=== PATIENT | female | born 1945 | race Caucasian/White ===

== ENCOUNTER 2022-10-15 12:21 | Inpatient (IN) | payer MEDICARE, SELFPAY ==
[2022-10-15] VITALS (18 sets, daily range): BP systolic 160–216; BP diastolic 50–113; PULSE 69–85; RESP 15–29; TEMP 36.7–37; O2SAT 97–100; BMI 18.8
--- NOTE | ~2022-10-15 | XR_ITS ---
EXAMINATION: XR chest 1V portable 10/15/2022 14:12 INDICATION: Dizziness. Confusion. PROCEDURE: AP portable chest COMPARISON: No prior studies for comparison. FINDINGS: The lungs are clear. The lungs are hyperinflated which is consistent with, but not diagnost ic of chronic obstructive pulmonary disease. The cardiomediastinal silhouette is within normal limit s. There are no pleural effusions. There is no pneumothorax suspected. IMPRESSION: 1: NO ACUTE CARDIOPULMONARY DISEASE. Reviewed, dictated and finalized at location A.
--- NOTE | ~2022-10-15 | CT_ITS ---
EXAMINATION: CTA brain carotid DATE: 10/15/2022 13:35 CDT INDICATION: Left facial droop. Flaccid left arm. TECHNIQUE: Computed tomographic angiography (CTA) of the head was performed without and with 100 mL O mnipaque-350 intravenous contrast. CTA of the neck was performed with intravenous contrast. The dose- length product was 1666.92 mGy-cm. Maximum intensity projection and volume rendered 3D-reconstruction s were created by the technologist on a separate workstation. COMPARISON: None. FINDINGS: HEAD CTA: Generalized brain parenchymal volume loss. Chronic right parietal lobe infarction. There ar e scattered moderate periventricular and subcortical white matter changes, most likely related to sma ll vessel ischemic disease (microangiopathy). Chronic. Midline right frontal lobe infarction. There i s intracranial atherosclerosis. There is mucosal thickening of the right maxillary sinus which appear s chronic. Mastoids are pneumatized. No depressed skull fractures. There is a dominant left vertebral artery. The right vertebral artery is diminutive throughout. The anterior, middle and posterior cere bral arteries are symmetric without significant stenosis, occlusion or aneurysm. No significant vascu lar anomaly. No acute infarction, hemorrhage or mass. NECK CTA: There is apical pleural thickening/scarring. There is ectasia of the thoracic aortic arch. No dissection identified. No significant stenosis at the origin of the right brachiocephalic or left common carotid arteries. The right vertebral artery is diminutive throughout. There is 41% stenosis of the proximal right internal carotid artery relative to normal distal artery lumen diameter (NASCET criteria). There is 70% stenosis of the proximal left internal carotid artery relative to normal distal artery lumen diameter. IMPRESSION: 1. 41% stenosis of the proximal right internal carotid artery relative to normal distal artery lumen diameter (NASCET criteria). 2. 70% stenosis of the proximal left internal carotid artery relative to normal distal artery lumen d iameter. 3: Dominant left vertebral artery without significant stenosis, occlusion or aneurysm in the intracra nial arteries. 4: Chronic right frontal and parietal lobe infarctions. 5: Chronic age-related findings. Reviewed, dictated and finalized at location A. IMPRESSION: 1. 41% stenosis of the proximal right internal carotid artery relative to wilmar l distal artery lumen diameter (NASCET criteria). 2. 70% stenosis of the proximal left internal carotid artery relative to normal distal artery lumen diameter. 3: Dominant left vertebral artery without significant stenosis, occlusion or an eurysm in the intracranial arteries. 4: Chronic right frontal and parietal lobe infarctions. 5: Chronic age-related findings.
--- NOTE | ~2022-10-15 | MR_ITS ---
EXAMINATION: MR brain/brain stem wo/w con DATE: 10/16/2022 11:56 INDICATION: Stroke presenting with left arm weakness and increasing left facial droop TECHNIQUE: Magnetic resonance imaging (MRI) of the brain and brainstem was performed without and with 10 mL Multihance intravenous contrast. Sequences included sagittal and axial T1-weighted SE, axial d iffusion-weighted FS SE, axial 3D SWAN, axial T2-weighted FLAIR, and axial T2-weighted FSE. Postcontr ast axial and coronal T1-weighted SE was obtained. Apparent diffusion coefficient (ADC) maps were cre ated. COMPARISON: 10/15/2022 FINDINGS: Multiple small regions of restricted diffusion in the right basal ganglia and right frontal and parie sarkis lobes in the vascular distribution of the right right middle cerebral artery consistent with acut e infarcts likely as sequela of a shower of emboli. No intracranial hemorrhage or abnormal intracrani al mass lesion. There are scattered areas of nonspecific increased T2-weighted signal intensity in th e cerebral white matter, predominantly involving the deep and periventricular white matter. There are no intraparenchymal signal abnormalities seen on the other pulse sequences. The ventricles are symme tric and normal in size. There are no abnormal extra-axial fluid collections. Flow voids are seen in the cerebral arteries on the T2-weighted sequences consistent with their expected patency. Left verte bral artery is dominant. Complete fluid/mucus filling of the right maxillary sinus with peripheral en hancing mucosal thickening. Additional enhancing mucosal thickening at the periphery of the right fro ntal sinus and right frontal ethmoidal recess. Visualized orbits and soft tissues are unremarkable. S mall region of enhancement likely related to luxury perfusion along the surface of the sulci associat ed with the acute infarcts in the right frontoparietal region. No other abnormal enhancing lesions id entified. IMPRESSION: 1. Multiple acute infarcts in the right basal ganglia and right frontal and parietal lobes involving the vascular distribution of the right middle cerebral artery likely representing sequela of a shower of emboli. 2. Sinus disease with fluid/mucus completely filling the right maxillary sinus. Reviewed, dictated and finalized at location A. IMPRESSION: 1. Multiple acute infarcts in the right basal ganglia and right frontal and par ietal lobes involving the vascular distribution of the right middle cerebral ar mani likely representing sequela of a shower of emboli. 2. Sinus disease with fluid/mucus completely filling the right maxillary sinus.
--- NOTE | 2022-10-15 12:37 | ECG_ITS ---
Measurements Intervals [place] Rate: 74 P: 23 AR: 123 QRS: -38 QRSD: 86 T: 48 QT: 405 QTc: 451 Interpretive Statements SINUS RHYTHM LEFT AXIS DEVIATION EARLY PRECORDIAL R/S TRANSITION LEFT VENTRICULAR HYPERTROPHY BASELINE ARTIFACT- I, II, III, AVR, AVL, AVF, V1-V6 BORDERLINE ECG R(aVL), S(V1), R(V5), R(V5/V6)+S(V1)] NO PREVIOUS ECG AVAILABLE FOR COMPARISON Electronically Signed On 10-16-2022 7:46:25 CDT by Gideon Rodriguez D.O.
--- NOTE | 2022-10-15 12:38 | ED.GENADULT ---
HPI - General Adult General Chief complaint: Altered Mental Status Stated complaint: increased confusion/weakness, mult other c/o Time Seen by Provider: 10/15/22 12:24 History of Present Illness HPI narrative: 77-year-old female presents emergency department for evaluation after having multiple ground-level falls. Patient had a fall last night and patient's neighbor went to check on her and found that she was on the ground. Patient states that she has multiple falls daily and patient does have bruises of multiple stages. Patient denies striking head denies loss of consciousness. Patient is not on any blood thinners. Patient does have a flaccid left arm which she states has been ongoing for the past few weeks. Patient states that it happened approximately 2 weeks ago and she did not get it checked out because she did not know who to see about this. Patient also does have some left facial droop. Related Data Home Medications Medication Instructions Recorded Confirmed No Home Medications 10/15/22 10/15/22 Allergies Allergy/AdvReac Type Severity Reaction Status Date / Time Penicillins Allergy Unknown Verified 10/15/22 17:45 Review of Systems Review of Systems: All systems reviewed & are unremarkable except as noted in HPI and below [facility] Past Medical History Medical History (Updated 10/15/22 @ 18:57 by Gurpreet Patel MD) CVA (cerebral vascular accident) Hypertension Surgical History Surgical History (Updated 10/15/22 @ 18:25 by Shayna Sandoval NP) No pertinent past surgical history Family History Family History Other Unknown family medical history Social History Social History (Updated 10/15/22 @ 18:26 by Shayna Sandoval NP) Social History: The patient lives home alone. She was a [id number] . She did not have any children. She is . She is lifelong nonsmoker. She does not use any alcohol marijuana or illicit drugs. Code status full code Smoking status: Never smoker Alcohol intake: former Substance use: never Substance use type: does not use Lack of Transportation: No Lack of Food: Never True Current Housing: I Have Housing Concerned About Future Housing: No Difficulty Paying Gas/Electric Bills: No Difficulty Paying for Meds: No Currently Unemployed: No Education: Don't Know Difficulty w/ Childcare or Family Care: No Spiritual care concerns: No Exam Narrative: APPEARANCE: Well appearing, no pain, no distress, well-nourished. HEAD: normocephalic, atraumatic. EYES: PERRLA/EOMI, conjunctivae clear. NOSE: Normal no drainage EARS:TMS clear with good light reflex. THROAT: Pharynx clear, no exudate. NECK: Supple. No adenopathy, no masses. RESPIRATORY: Airway patent, respirations nonlabored. Clear to auscultation bilaterally, no rales, rhonchi, wheezing. CARDIOVASCULAR: Regular rate and rhythm without murmurs rubs or gallops. ABDOMINAL: Soft, nontender, nondistended, normal bowel sounds MUSCULOSKELETAL: Moves all extremities. Strength/ROM intact, No edema, No calf tenderness. NEURO: Alert. Left facial droop and left arm flaccid paralysis SKIN: Warm, dry. Normal Color Course Course Emergency Course: 77-year-old female present emergency department for evaluation after having frequent falls. Patient is afebrile with no leukocytosis and a stable hemoglobin. Patient's CMP is generally within normal limits and patient's CPK is not significantly elevated. UA does show some elevated ketones but no underlying evidence of infection. Chest x-ray showed no evidence of focal pneumonia. CT a did show evidence of old infarct. Case was discussed with neurology and the plan for admission and MRI was discussed and neurology will see the patient as consult. Discussed case with the hospitalist and patient was accepted for admission. Updated patient and neighbor on the plan for admission. Neighbor was
[2022-10-15 12:45] LABS: Basophils Percent Auto 0.2 % (0.2-1.2); Hematocrit 41.6 % (37.0-47.0); Hemoglobin 13.4 g/dL (12.0-15.0); Immature Granulocyte Absolute 0.03 K/mm3 (0.00-0.031); Immature Granulocyte Percent A 0.3 % (0-0.5); Lymphocytes Absolute Auto 0.64 K/mm3 (0.9-3.2); Mean Corpuscular HGB Conc 32.2 g/dl (32-36); Mean Corpuscular Hemoglobin 30.2 pg (26-34); Mean Corpuscular Volume 93.9 fl (80-100); Mean Platelet Volume 12.7 fl (7.4-10.4); Monocytes Absolute Auto 0.7 K/mm3 (0.1-0.6); Monocytes Percent Auto 7.4 % (2.6-8.5); Neutrophils Absolute Auto 7.8 K/mm3 (1.3-6.7); Neutrophils Percent Auto 85.1 % (45.5-73.1); Platelet Count Result 183 k/mm3 (150-375); Red Blood Count 4.43 M/mm3 (4.2-5.4); White Blood Count 9.1 K/mm3 (4.5-10.0)
[2022-10-15 12:57] LABS: Alanine Aminotransferase 21 U/L (6-35); Albumin Level 4.6 g/dL (3.5-5.1); Alkaline Phosphatase 80 U/L (38-126); Anion Gap 12 mmol/L (8-16); Aspartate Amino Transferase 35 U/L (14-36); Blood Urea Nitrogen 36 mg/dL (7-17); Calcium 9.1 mg/dL (8.4-10.2); Carbon Dioxide 23 mmol/L (22-30); Chloride 104 mmol/L (98-107); Estimated CRCL calculation 24 ml/min; Estimated Glomerular Filt Rate 34; Glucose 101 mg/dL (65-110); Partial Thromboplastin Time 28.4 SECONDS (22.3-36.8); Potassium 3.5 mmol/L (3.4-5.0); Sodium 139 mmol/L (137-145)
[2022-10-15 13:05] LABS: Appearance Urine Clear (Clear); Bacteria Urine None Seen /hpf; Bilirubin Urine Negative (Negative); Blood Urine Trace (Negative); Color Urine Yellow (Yellow); Glucose Urine UA Negative (Negative); Ketones Urine 1+ mg/dL (Negative); Leukocyte Esterase Ur Negative LEU/UL (Negative); Nitrate Urine Negative (Negative); Non Pathogenic Casts 0-2; Protein Urine 1+ mg/dL (Negative); RBC Urine 0-2 /hpf (0-2); Specific Grav Ur 1.019 (1.001-1.035); Squamous Epithelial Cell Urine None seen /hpf (Few); WBC Urine 0-5 /hpf; pH Urine 5.5 (5.0-9.0)
[2022-10-15 13:07] LABS: Add Urine Microscopic? YES
[2022-10-15] MEDS: SODIUM CHLORIDE 0.9% IV 1,000 ML 999 ML IV CONT (14:27)
[2022-10-15 14:40] LABS: Creatine Kinase 219 U/L (30-135)
--- NOTE | 2022-10-15 15:19 | PM.IMHP ---
H&P: HPI History of Present Illness Date/Time: 10/15/22 15:19 Chief Complaint: Altered mental status Narrative: This is a 77-year-old female patient who lives at home alone. The patient has been complaining of weakness and has had multiple falls. The patient stated that her left arm went flaccid approximally 2 beats ago. The patient stated that her neighbor came in to check on her and found her on the ground. She has had multiple stages of bruising to both her arms. The patient does not see a physician regularly nor is she on any home medications. Patient's BUN is 36 creatinine 1.5. Estimated GFR is 34. Total creatinine kinase is 219. She has 1+ urine ketones and 1+ protein otherwise her urine is negative. Head and neck CT was read as a following 1. 41% stenosis of the proximal right internal carotid artery relative to normal distal artery lumen diameter (NASCET criteria). 2. 70% stenosis of the proximal left internal carotid artery relative to normal distal artery lumen diameter. 3: Dominant left vertebral artery without significant stenosis, occlusion or aneurysm in the intracranial arteries. 4:? Chronic right frontal and parietal lobe infarctions. 5:? Chronic age-related findings. Chest x-ray was read as no acute cardiopulmonary disease. The patient was started on IV fluids. Neurology has been consulted. The patient is being admitted to observation status on the date of service 10/15/2022 Review of Systems Review of Systems: All systems reviewed & are unremarkable except as noted in HPI and below Constitutional: Constitutional: Reports as per HPI and Reports no additional constitutional complaints Eyes: Eyes: Reports as per HPI and Reports no additional eye complaints ENT: Reports system reviewed and no additional complaints, except as documented and Reports Normal hearing present Cardiovascular: Cardiovascular: Reports no additional cardiovascular complaints Respiratory: Respiratory: Reports no additional respiratory complaints and Reports no additional respiratory complaints Gastrointestinal: Gastrointestinal: Reports as per HPI and Reports no additional gastrointestinal complaints Musculoskeletal: Musculoskeletal: Reports no additional musculoskeletal complaints Integumentary/Breasts: Skin/Breast: Reports system reviewed and no additional complaints, except as docu and Reports as per HPI Neurologic: Reports system reviewed and no additional complaints, except as documented, Reports as per HPI and Reports Normal hearing present Psychiatric: Psychiatric: Reports no additional psychiatric complaints and Reports as per HPI Endocrine: Endocrine: Reports no additional endocrine complaints Hematologic/Lymphatic: Hematologic/Lymphatic: Reports no additional hematologic/lymphatic complaints Allergic/Immunologic: Allergic/Immunologic: Reports no additional allergic/immunologic complaints PMFSH Past Medical History Medical History (Updated 10/15/22 @ 18:42 by Shayna Sandoval NP) CVA (cerebral vascular accident) Hypertension Surgical History Surgical History (Updated 10/15/22 @ 18:25 by Shayna Sandoval NP) No pertinent past surgical history Family History Family History Other Unknown family medical history Social History Social History (Updated 10/15/22 @ 18:26 by Shayna Sandoval NP) Social History: The patient lives home alone. She was a [id number] . She did not have any children. She is . She is lifelong nonsmoker. She does not use any alcohol marijuana or illicit drugs. Code status full code Smoking status: Never smoker Alcohol intake: former Substance use: never Substance use type: does not use Lack of Transportation: No Lack of Food: Never True Current Housing: I Have Housing Concerned About Future Housing: No Difficulty Paying Gas/Electric Bills: No Difficulty Paying for Meds: No Currently Unemploy
--- NOTE | 2022-10-15 15:58 | PCPTNOTE ---
Physical therapy evaluation ordered, but no H&P. Will attempt to evaluate tomorrow after workup completed.
--- NOTE | 2022-10-15 16:00 | ADMGEN ---
This patient, Samantha Mei, was admitted to 2 Medical Room 254-01. Patient/family oriented to hospital policies and general routines including ID bracelet, bed and alarms, visiting hours, pain management, procedures, bathroom and other care routines, personal items, smoking policy, room service/diet, and visiting hours. Information on how to activate the Rapid Response Team has been discussed. Patient/Family are encouraged to report perceived risks to care and to ask questions if they do not understand what they are told or what they should do.
[2022-10-15] MEDS: SODIUM CHLORIDE 0.9% IV 1,000 ML 100 ML IV CONT (21:10)
[2022-10-16] VITALS (8 sets, daily range): BP systolic 158–162; BP diastolic 52–59; PULSE 57–78; RESP 17; TEMP 36.6–37; O2SAT 93–98
--- NOTE | 2022-10-16 | ECHO_ITS ---
Patient Info Name: Samantha Mei Age: 77 years : 1945 Gender: Female Ht: 67 in Wt: 120 lbs BSA: 1.60 m2 HR: 61 bpm BP: 160 / 52 mmHg Heart Rhythm: Sinus Rhythm Technical Quality: Fair Exam Date: 10/16/2022 10:22 AM Exam Location: [facility] Patient Status: Inpatient Admit Date: 10/15/2022 Staff Ordering Physician: Shayna Sandoval NP [employer] Vehicle Crewman: Sydni Licona RDCS Attending Provider: Janie Miller MD Referring Physician: Jaime SALCEDO; Exam Type: CA echo doppler color flow Study Info Indications - cva Complete two-dimensional, color flow and Doppler transthoracic echocardiogram is performed. Summary 1. Complete two-dimensional, color flow and Doppler transthoracic echocardiogram is performed. 2. Normal left ventricular size thickness and systolic function. 3. Mildly enlarged left atrium. 4. Posterior leaflet mitral valve prolapse with mild MR. Left Ventricle Left ventricular chamber dimension is normal. Left ventricular systolic function is normal, estimated at 65-70%. The left ventricular diastolic function is grade I diastolic dysfunction. Right Ventricle Right ventricular chamber dimension is normal. Left Atria Left atrial chamber dimension is mildly enlarged. Right Atria Right atrial chamber dimension is normal. Aortic Valve The aortic valve is trileaflet. There is mild aortic valve sclerosis. Pulmonic Valve The pulmonic valve is not well visualized. Mitral Valve The mitral valve has thickened leaflets and posterior prolapse. There is mild mitral valve regurgitation. Tricuspid Valve The tricuspid valve leaflets are normal. Pericardium/Pleural The pericardium appears normal. Aorta The aortic root size at the sinus of Valsalva is normal. Left Ventricular Outflow Tract Name Value Normal LVOT 2D LVOT Diameter 1.8 cm LVOT Doppler LVOT Peak Gradient 7 mmHg LVOT Mean Gradient 3 mmHg LVOT VTI 24 cm LVOT VTI/AV VTI Ratio 0.9 LVOT Stroke Volume 63 ml LVOT CO 3.7 l/min LVOT CI 2.3 l/min/m2 Pulmonic Valve Name Value Normal RVOT Doppler RVOT Peak Gradient 3 mmHg PV Doppler PV Peak Gradient 5 mmHg Mitral Valve Name Value Normal MV Doppler MV Decel [place] 222 cm/s2 MV PHT 84 ms MV Area (PHT) 2.6 cm2 4.0-5.0 MV Diastolic Fun
[2022-10-16 05:25] LABS: Basophils Percent Auto 0.3 % (0.2-1.2); Hematocrit 37.1 % (37.0-47.0); Immature Granulocyte Absolute 0.03 K/mm3 (0.00-0.031); Immature Granulocyte Percent A 0.5 % (0-0.5); Lymphocytes Absolute Auto 0.73 K/mm3 (0.9-3.2); Mean Corpuscular HGB Conc 32.3 g/dl (32-36); Mean Corpuscular Hemoglobin 30.2 pg (26-34); Mean Corpuscular Volume 93.5 fl (80-100); Mean Platelet Volume 12.6 fl (7.4-10.4); Monocytes Absolute Auto 0.6 K/mm3 (0.1-0.6); Monocytes Percent Auto 9.4 % (2.6-8.5); Neutrophils Absolute Auto 5.2 K/mm3 (1.3-6.7); Neutrophils Percent Auto 78.8 % (45.5-73.1); Platelet Count Result 148 k/mm3 (150-375); Red Blood Count 3.97 M/mm3 (4.2-5.4); White Blood Count 6.6 K/mm3 (4.5-10.0)
[2022-10-16 05:43] LABS: Lactic Acid Reflex 0.7 mmol/L (0.7-2.0)
[2022-10-16 05:47] LABS: Alanine Aminotransferase 16 U/L (6-35); Albumin Level 3.5 g/dL (3.5-5.1); Alkaline Phosphatase 62 U/L (38-126); Anion Gap 9 mmol/L (8-16); Aspartate Amino Transferase 27 U/L (14-36); Bilirubin,Total 0.7 mg/dL (0.2-1.3); Blood Urea Nitrogen 27 mg/dL (7-17); Calcium 8.2 mg/dL (8.4-10.2); Carbon Dioxide 20 mmol/L (22-30); Chloride 109 mmol/L (98-107); Estimated CRCL calculation 28 ml/min; Estimated Glomerular Filt Rate 40; Glucose 85 mg/dL (65-110); Magnesium 2.1 mg/dL (1.6-2.3); Potassium 3.6 mmol/L (3.4-5.0); Sodium 138 mmol/L (137-145)
[2022-10-16 06:19] LABS: Thyroid Stimulating Hormone Reflex 0.793 uIU/mL (0.465-4.68)
--- NOTE | 2022-10-16 08:49 | WPDNEURCNPN ---
Assessment and Plan Assessment and plan (1) CVA (cerebral vascular accident): Code(s): I63.9 - Cerebral infarction, unspecified Status: Acute (2) Hypertension: Code(s): I10 - Essential (primary) hypertension Status: Acute Plan Samantha Mei is a 77 year old female with a history of hypertension and prior stroke presenting due to concerns for falls and LUE weakness. Found to have L facial droop and LUE weakness, that started about two weeks ago. Concern for subacute stroke. - Continue Aspirin 81mg daily, will consider adding Plavix based on distribution of stroke - Check LDL and A1c; goal LDL<70, may need statin - MRI brain and surface echocardiogram is pending - PT/OT Consult date: 10/16/22 Reason for consult: Stroke HPI: Samantha Mei is a 77 year old female with a history of hypertension and prior stroke presenting due to concerns for falls and LUE weakness. Patient lives at home alone. She has been complaining of weakness and multiple ground level falls recently. Also about two weeks ago, she noted that her left arm was very weak, but she did not have it evaluated. Her neighbors went to check on her on the day of presentation and found her on the ground. Of note, she does not see a physiican regularly and does not atke any home medications. In the ED she was noted to have L facial droop and flaccid parlaysis of the left upper extremity. CT head showed old infarcts in the right frontal and parietal regions. CTA brain/carotid showed 70% stenosis of the proximal L ICA and 41% stenosis of the proximal R ICA, as well as dominant L vertebral artery. Her blood pressure on presentation ranged from 170-190s systolic. Her EKG showed sinus rhythm. We do not have any prior LDL or A1c on file. MRI brain is pending. Review of Systems Constitutional: Constitutional: Denies chills, Denies fever(s) and Denies weight loss Eyes: Eyes: Denies diplopia and Denies loss of vision ENT: Denies dizziness, Denies hearing loss and Denies tinnitus Cardiovascular: Cardiovascular: Denies chest pain, Denies syncope and Denies dyspnea Respiratory: Respiratory: Denies cough, Denies dyspnea and Denies wheezing Gastrointestinal: Gastrointestinal: Denies abdominal pain, Denies change in bowel habits and Denies vomiting Genitourinary: Genitourinary: Denies urinary incontinence Musculoskeletal: Musculoskeletal: Reports back pain, Denies arthralgias and Denies joint swelling Integumentary/Breasts: Skin/Breast: Denies new lesions and Denies rash Neurologic: Reports as per HPI, Denies dizziness, Denies syncope and Denies loss of vision Psychiatric: Psychiatric: Denies anxiety and Denies depression Endocrine: Endocrine: Denies cold intolerance and Denies heat intolerance Hematologic/Lymphatic: Hematologic/Lymphatic: Denies easy bleeding and Denies easy bruising Allergic/Immunologic: Allergic/Immunologic: Denies no additional allergic/immunologic complaints and Denies wheezing PMFSH Past Medical History Medical History CVA (cerebral vascular accident) Hypertension Surgical History Surgical History No pertinent past surgical history Family History Family History Other Unknown family medical history Social History Social History Social History: The patient lives home alone. She was a [id number] . She did not have any children. She is . She is lifelong nonsmoker. She does not use any alcohol marijuana or illicit drugs. Code status full code Smoking status: Never smoker Alcohol intake: former Substance use: never Substance use type: does not use Lack of Transportation: No Lack of Food: Never True Current Housing: I Have Housing Concerned About Future Housing: No Difficulty
[2022-10-16] MEDS: ASPIRIN 81 MG ENTERIC TABLET PO (09:14)
[2022-10-16] MEDS: SODIUM CHLORIDE 0.9% IV 1,000 ML 100 ML IV CONT (09:21)
[2022-10-16 09:47] LABS: Hemoglobin A1C 5.6 % (<5.7)
[2022-10-16 09:52] LABS: LDL Cholesterol Direct 104 mg/dL
--- NOTE | 2022-10-16 12:24 | PCPTNOTE ---
On 10/16/22, the student, NIRAV Winston, provided care and completed [facility] documentation on this patient. I have reviewed the student's documentation and agree with the findings.
--- NOTE | 2022-10-16 12:50 | PM.IMPN ---
Progress Note: A&P Assessment and Plan (1) CVA (cerebral vascular accident): Code(s): I63.9 - Cerebral infarction, unspecified Status: Acute Assessment and Plan: Left-sided facial droop, left-sided arm weakness left-sided leg weakness with frequent falls ongoing for a couple of weeks uncertain for sure last date or time normal. MRI shows multiple acute ischemic infarcts suggestive of embolic shower from the right MCA. Obtain hemoglobin A1c and lipid panel with a.m. labs. (2) Hypertension: Code(s): I10 - Essential (primary) hypertension Status: Acute Assessment and Plan: [place] to be compensatory at this time do not aggressively lower. (3) Acute kidney injury: Code(s): N17.9 - Acute kidney failure, unspecified Status: Acute Assessment and Plan: Improving with IV fluids. Creatinine clearance still less than 30. Will renally dose Lovenox for VTE prophylaxis. Plan Subacute stroke affecting left face, left upper extremity and left lower extremity. Will optimize medical management, place left arm in a sling and refer patient for rehabilitation. Time Spent With Patient Time with patient: 25 - 35 minutes Subjective Date/time seen: 10/16/22 12:50 Interval history: 10/16 Rounding: Patient seen while eating breakfast seated upright in a chair. She has left-sided facial droop noted. Patient also noted to have significantly weakened left upper extremity only able to move at the shoulder. Left lower extremity with prompt drift. She states that she does not take any medicines at home does not see a doctor. She states that her left arm became weak sometime ago estimated to be a couple of weeks ago but she did not want to go for help. Patient states that when her neighbor saw her condition he had to fight hard to talk her into coming to the hospital for help. Review of Systems Review of Systems: All systems reviewed & are unremarkable except as noted in HPI and below Exam Const: General: comfortable and no acute distress HENMT: Mouth: Yes moist mucous membranes Eyes: Pupils: Equal, round and reactive pupils present EOM: EOMs intact bilaterally Neck: Neck: supple and no JVD Thyroid: thyroid normal Resp: Effort & Inspection: normal respiratory effort Auscultation: clear to auscultation bilaterally, no crackles, no rales, no rhonchi and no wheezes Cardio: Rate: regular rate Rhythm: regular rhythm Heart sounds: no gallops, no murmurs and no rubs GI: Inspection: non-distended GI Palp: Yes Soft to palpation, No Tenderness to palpation present (GI) and No Guarding due to palpation present (GI) Skin: General skin exam: normal color Rashes: no rashes noted Neuro: Other: Pupils equal and reactive bilaterally, EOMI, left lower facial droop. Strength is 5/5 in RUE, 2/5 in proximal LUE (shoulder abduction), and 0/5 in distal LUE. RLE 4+/5, LLE 4/5. Sensation intact throughout. FNF normal intact on R, unable to perform on L. Language comprehension and fluency intact. Gait deferred. Extrem: General: normal to inspection Psych: Mental Status: mental status grossly normal Affect: Anxious affect present Objective Data Vital Signs Vital Signs: Vital Signs - 24 hr 10/15/22 13:00 10/15/22 13:01 10/15/22 13:30 Temperature Pulse Rate 69 71 77 Respiratory Rate 25 H 17 29 H Blood Pressure 188/89 H Pulse Oximetry 100 100 Oxygen Delivery 10/15/22 13:45 10/15/22 14:00 10/15/22 14:16 Temperature Pulse Rate 71 73 77 Respiratory Rate 25 H 26 H 26 H Blood Pressure Pulse Oximetry 100 Oxygen Delivery 10/15/22 14:45 10/15/22 14:46 10/15/22 16:33 Temperature Pulse Rate 85 83 Respiratory Rate 20 20 Blood Pressure Pulse Oximetry Oxygen Delivery Room Air 10/15/22 16:27 10/15/22 15:59 10/15/22 21:21 Temperature 36.7 C 37.0 C Pulse Rate 75 70 71 Respiratory Rate 18 17 Blood Pressure 170/60 H 160/50 H Pulse Oximetry 100 97
--- NOTE | 2022-10-16 12:58 | PCSTNOTE ---
Bedside swallowing evaluation. Patient seen sitting upright in chair at bedside with lunch tray set up and eating her lunch. Oral peripheral examination reveals left sided labial weakness and reduced range of motion. Trials of thin liquid by straw, solid food (sandwich, grapes) were observed. Patient demonstrated no difficulty with mastication or swallowing. Although left sided labial weakness is present, patient had no difficulty with lip seal and no anterior food loss. Please note that silent aspiration cannot be ruled out at bedside and can only be evaluated with a modified barium swallow study. Recommendation: regular texture diet and thin liquids. Thank you for the referral of this patient.
[2022-10-16] MEDS: ENOXAPARIN 30 MG/0.3 ML SYRINGE SUB-Q (17:32)
[2022-10-17] VITALS (9 sets, daily range): BP systolic 152–165; BP diastolic 60–85; PULSE 57–77; RESP 17–18; TEMP 36.7–37; O2SAT 98–100
[2022-10-17] MEDS: SODIUM CHLORIDE 0.9% IV 1,000 ML 100 ML IV CONT ×2 (00:30→14:39)
[2022-10-17 05:36] LABS: Hematocrit 38.8 % (37.0-47.0); Hemoglobin 12.2 g/dL (12.0-15.0); Mean Corpuscular HGB Conc 31.4 g/dl (32-36); Mean Corpuscular Hemoglobin 30.1 pg (26-34); Mean Corpuscular Volume 95.8 fl (80-100); Platelet Count Result 153 k/mm3 (150-375); Red Blood Count 4.05 M/mm3 (4.2-5.4); Red Cell Distribution Width 13.2 % (11.5-14.5); White Blood Count 6.9 K/mm3 (4.5-10.0)
[2022-10-17 05:45] LABS: Anion Gap 8 mmol/L (8-16); Blood Urea Nitrogen 23 mg/dL (7-17); Calcium 8.2 mg/dL (8.4-10.2); Carbon Dioxide 23 mmol/L (22-30); Chloride 110 mmol/L (98-107); Estimated CRCL calculation 32 ml/min; Estimated Glomerular Filt Rate 48; Glucose 92 mg/dL (65-110); Potassium 3.1 mmol/L (3.4-5.0); Sodium 141 mmol/L (137-145)
[2022-10-17] MEDS: POTASSIUM CHLORIDE 20 MEQ ER TABLET 40 MEQ PO (09:17)
[2022-10-17] MEDS: ASPIRIN 81 MG ENTERIC TABLET PO (09:17)
[2022-10-17] MEDS: ENOXAPARIN 30 MG/0.3 ML SYRINGE SUB-Q (09:17)
--- NOTE | 2022-10-17 09:57 | PM.IMPN ---
Progress Note: A&P Assessment and Plan (1) CVA (cerebral vascular accident): Code(s): I63.9 - Cerebral infarction, unspecified Status: Acute Assessment and Plan: Left-sided facial droop, left-sided arm weakness left-sided leg weakness with frequent falls ongoing for a couple of weeks uncertain for sure last date or time normal. MRI shows multiple acute ischemic infarcts suggestive of embolic shower from the right MCA. Obtain hemoglobin A1c and lipid panel with a.m. labs as this did not happen today. (2) Hypertension: Code(s): I10 - Essential (primary) hypertension Status: Acute Assessment and Plan: [place] to be compensatory at this time do not aggressively lower. (3) Acute kidney injury: Code(s): N17.9 - Acute kidney failure, unspecified Status: Acute Assessment and Plan: Improving with IV fluids. Creatinine clearance now 32. Will stop IV fluids today and check morning labs. Plan Subacute stroke affecting left face, left upper extremity and left lower extremity. Will optimize medical management, place left arm in a sling and refer patient for rehabilitation. Time Spent With Patient Time with patient: 25 - 35 minutes Subjective Date/time seen: 10/17/22 09:57 Interval history: 10/16 Rounding: Patient seen while eating breakfast seated upright in a chair. She has left-sided facial droop noted. Patient also noted to have significantly weakened left upper extremity only able to move at the shoulder. Left lower extremity with prompt drift. She states that she does not take any medicines at home does not see a doctor. She states that her left arm became weak sometime ago estimated to be a couple of weeks ago but she did not want to go for help. Patient states that when her neighbor saw her condition he had to fight hard to talk her into coming to the hospital for help. 10/17 Rounding: Patient seen seated in chair discussing with Case Management about rehab placement after hospital stay. Patient remains concerned about rehab stating she wants to go home. Patient does not seem competent to make such decision as she does not understand the severity of her debility or yet know how to perform ADLs and getting around safely given new deficits. Patient denies any pain or problems except unsteadiness and left sided weakness. Review of Systems Review of Systems: All systems reviewed & are unremarkable except as noted in HPI and below Exam Const: General: comfortable and no acute distress HENMT: Mouth: Yes moist mucous membranes Eyes: Pupils: Equal, round and reactive pupils present EOM: EOMs intact bilaterally Neck: Neck: supple and no JVD Thyroid: thyroid normal Resp: Effort & Inspection: normal respiratory effort Auscultation: clear to auscultation bilaterally, no crackles, no rales, no rhonchi and no wheezes Cardio: Rate: regular rate Rhythm: regular rhythm Heart sounds: no gallops, no murmurs and no rubs GI: Inspection: non-distended GI Palp: Yes Soft to palpation, No Tenderness to palpation present (GI) and No Guarding due to palpation present (GI) Skin: General skin exam: normal color Rashes: no rashes noted Neuro: Other: PERRL, EOMI, Left facial droop with mostly normal phonation. Left arm only moving at shoulder, left leg with fast drift and 3-4/5 strength. Extrem: General: normal to inspection Psych: Affect: Anxious affect present Other: Confused about debility and delusional about return home upon discharge. Objective Data Vital Signs Vital Signs: Vital Signs - 24 hr 10/16/22 10:56 10/16/22 14:00 10/16/22 16:00 Temperature 37.0 C Pulse Rate 63 70 Respiratory Rate 17 Blood Pressure 158/58 H Pulse Oximetry 98 Oxygen Delivery Room Air 10/16/22 21:05 10/16/22 20:00 10/16/22 20:00 Temperature 36.6 C Pulse Rate 75 78 Respiratory Rate 17 Blood Pressure 162/59 H Pulse Oximetry 93 Oxygen Delivery Room Air
[2022-10-18] VITALS (8 sets, daily range): BP systolic 146–181; BP diastolic 89–97; PULSE 54–109; RESP 14–18; TEMP 36.6–36.8; O2SAT 92–100
[2022-10-18 05:24] LABS: Hematocrit 38.1 % (37.0-47.0); Mean Corpuscular HGB Conc 31.5 g/dl (32-36); Mean Corpuscular Hemoglobin 30.3 pg (26-34); Mean Corpuscular Volume 96.2 fl (80-100); Mean Platelet Volume 12.7 fl (7.4-10.4); Platelet Count Result 152 k/mm3 (150-375); Red Blood Count 3.96 M/mm3 (4.2-5.4); Red Cell Distribution Width 13.2 % (11.5-14.5)
[2022-10-18 05:44] LABS: Anion Gap 5 mmol/L (8-16); Blood Urea Nitrogen 23 mg/dL (7-17); Calcium 8.5 mg/dL (8.4-10.2); Carbon Dioxide 24 mmol/L (22-30); Chloride 110 mmol/L (98-107); Cholesterol 197 mg/dL (0-200); Estimated CRCL calculation 30 ml/min; Estimated Glomerular Filt Rate 43; Glucose 97 mg/dL (65-110); HDL Direct 59 mg/dL; Potassium 3.9 mmol/L (3.4-5.0); Sodium 139 mmol/L (137-145); Triglycerides 99 mg/dL (<150)
[2022-10-18 05:48] LABS: Hemoglobin A1C 5.6 % (<5.7)
[2022-10-18 05:54] LABS: LDL Cholesterol Direct 98 mg/dL
--- NOTE | 2022-10-18 07:11 | PM.IMPN ---
Progress Note: A&P Assessment and Plan (1) CVA (cerebral vascular accident): Code(s): I63.9 - Cerebral infarction, unspecified Status: Acute Assessment and Plan: Left-sided facial droop, left-sided arm weakness left-sided leg weakness with frequent falls ongoing for a couple of weeks uncertain for sure last date or time normal. MRI shows multiple acute ischemic infarcts suggestive of embolic shower from the right MCA. -Hgb A1C 5.6 -Lipid panel with LDL 98 (goal is <70 per neurology) -Started on atorvastatin 40 mg daily (2) Hypertension: Code(s): I10 - Essential (primary) hypertension Status: Acute Assessment and Plan: [place] to be compensatory at this time do not aggressively lower. -Blood pressures reviewed. SBP ranging from 150-170's. (3) Acute kidney injury: Code(s): N17.9 - Acute kidney failure, unspecified Status: Acute Assessment and Plan: Improving with IV fluids. Creatinine clearance now 32. Will stop IV fluids today and check morning labs. -CR on admission 1.5->1.3->1.1->today 1.2 after stopping IV fluids -Will make sure patient is taking adequate PO intake. Plan Subacute stroke affecting left face, left upper extremity and left lower extremity. Will optimize medical management, place left arm in a sling and refer patient for rehabilitation. -Per Care coordination notes, accepted at [facility] pending insurance. Referrals sent to [facility] as well. Subjective Date/time seen: 10/18/22 07:11 Interval history: HPI obtained from chart: This is a 77-year-old female patient who lives at home alone.? The patient has been complaining of weakness and has had multiple falls.? The patient stated that her left arm went flaccid approximally 2 weeks ago.? The patient stated that her neighbor came in to check on her and found her on the ground.? She has had multiple stages of bruising to both her arms.? The patient does not see a physician regularly nor is she on any home medications. Patient was admitted for further workup with neurology consult. 10/16 Rounding: Patient seen while eating breakfast seated upright in a chair. She has left-sided facial droop noted. Patient also noted to have significantly weakened left upper extremity only able to move at the shoulder. Left lower extremity with prompt drift. She states that she does not take any medicines at home does not see a doctor. She states that her left arm became weak sometime ago estimated to be a couple of weeks ago but she did not want to go for help. Patient states that when her neighbor saw her condition he had to fight hard to talk her into coming to the hospital for help. 10/17 Rounding: Patient seen seated in chair discussing with Case Management about rehab placement after hospital stay. Patient remains concerned about rehab stating she wants to go home. Patient does not seem competent to make such decision as she does not understand the severity of her debility or yet know how to perform ADLs and getting around safely given new deficits. Patient denies any pain or problems except unsteadiness and left sided weakness. 10/18: Objective Data Vital Signs Vital Signs: Vital Signs - 24 hr 10/17/22 09:17 10/17/22 14:00 10/17/22 08:00 Temperature 98.0 F Pulse Rate 60 60 Respiratory Rate 18 Blood Pressure 152/64 H Pulse Oximetry 98 Oxygen Delivery Room Air 10/17/22 12:00 10/17/22 16:00 10/17/22 19:29 Temperature 98.6 F Pulse Rate 64 77 66 Respiratory Rate 18 Blood Pressure 159/85 H Pulse Oximetry 100 Oxygen Delivery 10/17/22 20:00 10/18/22 00:00 10/18/22 04:00 Temperature Pulse Rate 77 82 54 L Respiratory Rate Blood Pressure Pulse Oximetry Oxygen Delivery 10/18/22 06:00 Temperature 97.9 F Pulse Rate 60 Respiratory Rate 18 Blood Pressure 175/89 H Pulse Oximetry 100 Oxygen Delivery Intake/Output Intake/Output: Intake & Outp
--- NOTE | 2022-10-18 07:40 | PM.IMPN ---
Progress Note: A&P Assessment and Plan (1) CVA (cerebral vascular accident): Code(s): I63.9 - Cerebral infarction, unspecified Status: Acute Assessment and Plan: Left-sided facial droop, left-sided arm weakness left-sided leg weakness with frequent falls ongoing for a couple of weeks uncertain for sure last date or time normal. MRI shows multiple acute ischemic infarcts suggestive of embolic shower from the right MCA. -Hgb A1C 5.6 -Lipid panel with LDL 98 (goal is <70 per neurology) -Started on atorvastatin 40 mg daily Loaded with plavix and started maintenance dose (2) Hypertension: Code(s): I10 - Essential (primary) hypertension Status: Acute Assessment and Plan: [place] to be compensatory at this time do not aggressively lower. -Blood pressures reviewed. SBP ranging from 150-170's. (3) Acute kidney injury: Code(s): N17.9 - Acute kidney failure, unspecified Status: Acute Assessment and Plan: Improving with IV fluids. Creatinine clearance now 32. Will stop IV fluids today and check morning labs. -CR on admission 1.5->1.3->1.1->today 1.2 after stopping IV fluids -Will make sure patient is taking adequate PO intake. Plan Subacute stroke affecting left face, left upper extremity and left lower extremity. Will optimize medical management, place left arm in a sling and refer patient for rehabilitation. -Per Care coordination notes, accepted at [facility] pending insurance. Referrals sent to [facility] as well. Subjective Date/time seen: 10/18/22 07:40 Interval history: Reason for hospitalization: Acute kidney injury, weakness Hospital Course: HPI obtained from chart: This is a 77-year-old female patient who lives at home alone.? The patient has been complaining of weakness and has had multiple falls.? The patient stated that her left arm went flaccid approximally 2 weeks ago.? The patient stated that her neighbor came in to check on her and found her on the ground.? She has had multiple stages of bruising to both her arms.? The patient does not see a physician regularly nor is she on any home medications. Patient was admitted for further workup with neurology consult. 10/16 Rounding:? Patient seen while eating breakfast seated upright in a chair.? She has left-sided facial droop noted.? Patient also noted to have significantly weakened left upper extremity only able to move at the shoulder.? Left lower extremity with prompt drift.? She states that she does not take any medicines at home does not see a doctor.? She states that her left arm became weak sometime ago estimated to be a couple of weeks ago but she did not want to go for help.? Patient states that when her neighbor saw her condition he had to fight hard to talk her into coming to the hospital for help. 10/17 Rounding:? Patient seen seated in chair discussing with Case Management about rehab placement after hospital stay. Patient remains concerned about rehab stating she wants to go home. Patient does not seem competent to make such decision as she does not understand the severity of her debility or yet know how to perform ADLs and getting around safely given new deficits. Patient denies any pain or problems except unsteadiness and left sided weakness. 10/18:? Patient is seen today sitting in her chair resting.? She is in no acute distress.? She is alert and oriented x4.? I spoke with her about discharge today to an acute rehab Center.? She understands that this is the best choice given her disability with immobility of her left upper extremity and concurrent left lower extremity weakness.? She denies any other complaints. Exam Narrative: General: thin, chronically ill appearing 77-year-old female, sitting up in chair, comfortable, NARD Neuro: awake, alert and oriented x4, speech clear, no focal neuro deficits noted HEENMT: normocephalic, atraumatic, EOMI, sclerae anicteric, moist oral mucosa Respiratory: Jose
[2022-10-18] MEDS: ENOXAPARIN 30 MG/0.3 ML SYRINGE SUB-Q (09:43)
[2022-10-18] MEDS: ASPIRIN 81 MG ENTERIC TABLET PO (09:43)
[2022-10-18] MEDS: ATORVASTATIN 40 MG TABLET PO (09:43)
[2022-10-18] MEDS: CLOPIDOGREL BISULFATE 300 MG TABLET PO (12:02)
--- NOTE | 2022-10-18 14:47 | PM.DS ---
DS: Admitting Diagnosis Discharge Date SundayOctober 18 Admitting Diagnosis Acute kidney injury DS: Discharge Diagnosis Discharge Diagnosis (1) CVA (cerebral vascular accident): Code(s): I63.9 - Cerebral infarction, unspecified Status: Acute Assessment and Plan: Left-sided facial droop, left-sided arm weakness left-sided leg weakness with frequent falls ongoing for a couple of weeks uncertain for sure last date or time normal. MRI shows multiple acute ischemic infarcts suggestive of embolic shower from the right MCA. -Hgb A1C 5.6 -Lipid panel with LDL 98 (goal is <70 per neurology) -Started on atorvastatin 40 mg daily (2) Hypertension: Code(s): I10 - Essential (primary) hypertension Status: Acute Assessment and Plan: [place] to be compensatory at this time do not aggressively lower. -Blood pressures reviewed. SBP ranging from 150-170's. (3) Acute kidney injury: Code(s): N17.9 - Acute kidney failure, unspecified Status: Acute Assessment and Plan: Improving with IV fluids. Creatinine clearance now 32. Will stop IV fluids today and check morning labs. -CR on admission 1.5->1.3->1.1->today 1.2 after stopping IV fluids -Will make sure patient is taking adequate PO intake. Plan Subacute stroke affecting left face, left upper extremity and left lower extremity. Will optimize medical management, place left arm in a sling and refer patient for rehabilitation. -Per Care coordination notes, accepted at [facility] pending insurance. Referrals sent to [facility] as well. DS: Summary Hospital Course Reason for hospitalization: Acute kidney injury, weakness Hospital Course: HPI obtained from chart: This is a 77-year-old female patient who lives at home alone.? The patient has been complaining of weakness and has had multiple falls.? The patient stated that her left arm went flaccid approximally 2 weeks ago.? The patient stated that her neighbor came in to check on her and found her on the ground.? She has had multiple stages of bruising to both her arms.? The patient does not see a physician regularly nor is she on any home medications. Patient was admitted for further workup with neurology consult. 10/16 Rounding:? Patient seen while eating breakfast seated upright in a chair.? She has left-sided facial droop noted.? Patient also noted to have significantly weakened left upper extremity only able to move at the shoulder.? Left lower extremity with prompt drift.? She states that she does not take any medicines at home does not see a doctor.? She states that her left arm became weak sometime ago estimated to be a couple of weeks ago but she did not want to go for help.? Patient states that when her neighbor saw her condition he had to fight hard to talk her into coming to the hospital for help. 10/17 Rounding:? Patient seen seated in chair discussing with Case Management about rehab placement after hospital stay. Patient remains concerned about rehab stating she wants to go home. Patient does not seem competent to make such decision as she does not understand the severity of her debility or yet know how to perform ADLs and getting around safely given new deficits. Patient denies any pain or problems except unsteadiness and left sided weakness. 10/18: Patient is seen today sitting in her chair resting. She is in no acute distress. She is alert and oriented x4. I spoke with her about discharge today to an acute rehab Center. She understands that this is the best choice given her disability with immobility of her left upper extremity and concurrent left lower extremity weakness. She denies any other complaints. Status at Discharge Cognitive/behavioral status at discharge: A&O x4, requires assistance with ADLs Time Spent with Patient Time attestation: Total time spent providing and/or coordinating discharge services:42 Exam Narrative: General: thin, chronically ill appearin
--- NOTE | 2022-10-18 19:43 | PC.NURSE ---
pt had active discharge orders today which were postponed r/t insurance auth. Tele D/C per discharge protocol
[2022-10-19 05:43] LABS: Hemoglobin 12.6 g/dL (12.0-15.0); Mean Corpuscular HGB Conc 31.5 g/dl (32-36); Mean Corpuscular Hemoglobin 29.6 pg (26-34); Mean Corpuscular Volume 93.9 fl (80-100); Mean Platelet Volume 12.5 fl (7.4-10.4); Platelet Count Result 160 k/mm3 (150-375); Red Blood Count 4.26 M/mm3 (4.2-5.4); Red Cell Distribution Width 13.2 % (11.5-14.5); White Blood Count 5.3 K/mm3 (4.5-10.0)
[2022-10-19 05:57] LABS: Anion Gap 6 mmol/L (8-16); Blood Urea Nitrogen 22 mg/dL (7-17); Calcium 8.4 mg/dL (8.4-10.2); Carbon Dioxide 26 mmol/L (22-30); Chloride 106 mmol/L (98-107); Estimated CRCL calculation 32 ml/min; Estimated Glomerular Filt Rate 48; Glucose 91 mg/dL (65-110); Potassium 3.5 mmol/L (3.4-5.0); Sodium 138 mmol/L (137-145)
[2022-10-19 06:00] VITALS: BP 180/71; PULSE 61; RESP 18; TEMP 36.2; O2SAT 100
--- NOTE | 2022-10-19 07:41 | PM.IMPN ---
Progress Note: A&P Assessment and Plan (1) CVA (cerebral vascular accident): Code(s): I63.9 - Cerebral infarction, unspecified Status: Acute Assessment and Plan: Left-sided facial droop, left-sided arm weakness left-sided leg weakness with frequent falls ongoing for a couple of weeks uncertain for sure last date or time normal. MRI shows multiple acute ischemic infarcts suggestive of embolic shower from the right MCA. -Hgb A1C 5.6 -Lipid panel with LDL 98 (goal is <70 per neurology) -Started on atorvastatin 40 mg daily Loaded with plavix and started maintenance dose to continue to 3 months. (2) Hypertension: Code(s): I10 - Essential (primary) hypertension Status: Acute Assessment and Plan: [place] to be compensatory at this time do not aggressively lower. -Blood pressures reviewed. SBP consistently 180's over the last 24 hours. -Will start Amlodipine 5 mg PO daily (3) Acute kidney injury: Code(s): N17.9 - Acute kidney failure, unspecified Status: Acute Assessment and Plan: Improving with IV fluids. Creatinine clearance now 32. Will stop IV fluids today and check morning labs. -CR on admission 1.5->1.3->1.1->1.2->1.1 -Will make sure patient is taking adequate PO intake. Plan Subacute stroke affecting left face, left upper extremity and left lower extremity. Will optimize medical management, place left arm in a sling and refer patient for rehabilitation. -Per Care coordination notes, accepted at [facility] pending insurance. Referrals sent to [facility] as well. -await peer to peer scheduled for tomorrow at 10:00 a.m. if unsuccessful then family will have to appeal. Subjective Date/time seen: 10/19/22 07:41 Interval history: Reason for hospitalization: Acute kidney injury, weakness Hospital Course: HPI obtained from chart: This is a 77-year-old female patient who lives at home alone.? The patient has been complaining of weakness and has had multiple falls.? The patient stated that her left arm went flaccid approximally 2 weeks ago.? The patient stated that her neighbor came in to check on her and found her on the ground.? She has had multiple stages of bruising to both her arms.? The patient does not see a physician regularly nor is she on any home medications. Patient was admitted for further workup with neurology consult. 10/16 Rounding:? Patient seen while eating breakfast seated upright in a chair.? She has left-sided facial droop noted.? Patient also noted to have significantly weakened left upper extremity only able to move at the shoulder.? Left lower extremity with prompt drift.? She states that she does not take any medicines at home does not see a doctor.? She states that her left arm became weak sometime ago estimated to be a couple of weeks ago but she did not want to go for help.? Patient states that when her neighbor saw her condition he had to fight hard to talk her into coming to the hospital for help. 10/17 Rounding:? Patient seen seated in chair discussing with Case Management about rehab placement after hospital stay. Patient remains concerned about rehab stating she wants to go home. Patient does not seem competent to make such decision as she does not understand the severity of her debility or yet know how to perform ADLs and getting around safely given new deficits. Patient denies any pain or problems except unsteadiness and left sided weakness. 10/18:? Patient is seen today sitting in her chair resting.? She is in no acute distress.? She is alert and oriented x4.? I spoke with her about discharge today to an acute rehab Center.? She understands that this is the best choice given her disability with immobility of her left upper extremity and concurrent left lower extremity weakness.? She denies any other complaints. 10/19: Anticipated discharging patient to rehab today however her insurance has declined coverage. I called scheduled peer to peer for diane
[2022-10-19] MEDS: ENOXAPARIN 30 MG/0.3 ML SYRINGE SUB-Q (08:54)
[2022-10-19] MEDS: ASPIRIN 81 MG ENTERIC TABLET PO (08:54)
[2022-10-19] MEDS: ATORVASTATIN 40 MG TABLET PO (08:54)
[2022-10-19] MEDS: CLOPIDOGREL BISULFATE 75 MG TABLET PO (08:54)
[2022-10-19] MEDS: amLODIPine BESYLATE 5 MG TABLET PO (09:28)
[2022-10-19 13:50] VITALS: BP 145/75; PULSE 77; RESP 16; TEMP 36.4; O2SAT 98
[2022-10-19 21:00] VITALS: BP 150/72; PULSE 73; RESP 18; TEMP 36.2; O2SAT 96
[2022-10-20 02:57] VITALS: BP 165/82; PULSE 51; RESP 18; TEMP 36; O2SAT 93
[2022-10-20 06:30] LABS: Basophils Percent Auto 0.3 % (0.2-1.2); Eosinophils Absolute Auto 0.1 K/mm3 (0-0.3); Eosinophils Percent Auto 0.9 % (0-4.4); Hemoglobin 12.7 g/dL (12.0-15.0); Immature Granulocyte Absolute 0.02 K/mm3 (0.00-0.031); Immature Granulocyte Percent A 0.3 % (0-0.5); Lymphocytes Absolute Auto 0.74 K/mm3 (0.9-3.2); Lymphocytes Percent Auto 10.5 % (18.3-44.2); Mean Corpuscular HGB Conc 31.8 g/dl (32-36); Mean Corpuscular Hemoglobin 30.5 pg (26-34); Mean Corpuscular Volume 96.2 fl (80-100); Mean Platelet Volume 12.6 fl (7.4-10.4); Monocytes Absolute Auto 0.8 K/mm3 (0.1-0.6); Neutrophils Absolute Auto 5.4 K/mm3 (1.3-6.7); Platelet Count Result 160 k/mm3 (150-375); Red Blood Count 4.16 M/mm3 (4.2-5.4); Red Cell Distribution Width 13.3 % (11.5-14.5)
[2022-10-20 06:49] LABS: Alanine Aminotransferase 17 U/L (6-35); Albumin Level 3.7 g/dL (3.5-5.1); Alkaline Phosphatase 69 U/L (38-126); Anion Gap 6 mmol/L (8-16); Aspartate Amino Transferase 25 U/L (14-36); Bilirubin,Total 0.5 mg/dL (0.2-1.3); Blood Urea Nitrogen 27 mg/dL (7-17); Calcium 8.4 mg/dL (8.4-10.2); Carbon Dioxide 25 mmol/L (22-30); Chloride 107 mmol/L (98-107); Estimated CRCL calculation 28 ml/min; Estimated Glomerular Filt Rate 40; Glucose 101 mg/dL (65-110); Magnesium 2.3 mg/dL (1.6-2.3); Potassium 3.5 mmol/L (3.4-5.0); Sodium 138 mmol/L (137-145)
--- NOTE | 2022-10-20 07:46 | PM.IMPN ---
Progress Note: A&P Assessment and Plan (1) CVA (cerebral vascular accident): Code(s): I63.9 - Cerebral infarction, unspecified Status: Acute Assessment and Plan: Left-sided facial droop, left-sided arm weakness left-sided leg weakness with frequent falls ongoing for a couple of weeks uncertain for sure last date or time normal. MRI shows multiple acute ischemic infarcts suggestive of embolic shower from the right MCA. -Hgb A1C 5.6 -Lipid panel with LDL 98 (goal is <70 per neurology) -Started on atorvastatin 40 mg daily -Loaded with plavix and started maintenance dose at 75 mg daily for three months duration (2) Hypertension: Code(s): I10 - Essential (primary) hypertension Status: Acute Assessment and Plan: -Blood pressures reviewed. SBP yesterday consistently in the 180s. -started on amlodipine 5 mg. Blood pressures improved with SBP 150-160s. (3) Acute kidney injury: Code(s): N17.9 - Acute kidney failure, unspecified Status: Acute Assessment and Plan: -CR on admission 1.5->1.3->1.1->1.2->1.3 trending back up. -Will make sure patient is taking adequate PO intake. -restart low dose fluids -Blood pressure hypertensive Plan Subacute stroke affecting left face, left upper extremity and left lower extremity. Will optimize medical management, place left arm in a sling and refer patient for rehabilitation. -Per Care coordination notes, accepted at [facility] pending insurance. Referrals sent to [facility] as well. -peer to peer was denied. Family does not want to appeal. Await acceptance to SNF. Subjective Date/time seen: 10/20/22 07:46 Interval history: Reason for hospitalization: Acute kidney injury, weakness Hospital Course: HPI obtained from chart: This is a 77-year-old female patient who lives at home alone.? The patient has been complaining of weakness and has had multiple falls.? The patient stated that her left arm went flaccid approximally 2 weeks ago.? The patient stated that her neighbor came in to check on her and found her on the ground.? She has had multiple stages of bruising to both her arms.? The patient does not see a physician regularly nor is she on any home medications. Patient was admitted for further workup with neurology consult. 10/16 Rounding:? Patient seen while eating breakfast seated upright in a chair.? She has left-sided facial droop noted.? Patient also noted to have significantly weakened left upper extremity only able to move at the shoulder.? Left lower extremity with prompt drift.? She states that she does not take any medicines at home does not see a doctor.? She states that her left arm became weak sometime ago estimated to be a couple of weeks ago but she did not want to go for help.? Patient states that when her neighbor saw her condition he had to fight hard to talk her into coming to the hospital for help. 10/17 Rounding:? Patient seen seated in chair discussing with Case Management about rehab placement after hospital stay. Patient remains concerned about rehab stating she wants to go home. Patient does not seem competent to make such decision as she does not understand the severity of her debility or yet know how to perform ADLs and getting around safely given new deficits. Patient denies any pain or problems except unsteadiness and left sided weakness. 10/18:? Patient is seen today sitting in her chair resting.? She is in no acute distress.? She is alert and oriented x4.? I spoke with her about discharge today to an acute rehab Center.? She understands that this is the best choice given her disability with immobility of her left upper extremity and concurrent left lower extremity weakness.? She denies any other complaints. 10/19: Anticipated discharging patient to rehab today however her insurance has declined coverage. I called scheduled peer to peer for tomorrow at 10 am. Patient is doing well today her only complaints ar
[2022-10-20] MEDS: ATORVASTATIN 40 MG TABLET PO (10:04)
[2022-10-20] MEDS: CLOPIDOGREL BISULFATE 75 MG TABLET PO (10:04)
[2022-10-20] MEDS: ENOXAPARIN 30 MG/0.3 ML SYRINGE SUB-Q (10:04)
[2022-10-20] MEDS: amLODIPine BESYLATE 5 MG TABLET PO (10:04)
[2022-10-20] MEDS: SODIUM CHLORIDE 0.9% IV 1,000 ML 75 ML IV CONT ×2 (10:05→23:00)
[2022-10-20] MEDS: ASPIRIN 81 MG ENTERIC TABLET PO (10:05)
[2022-10-20 14:00] VITALS: BP 156/80; PULSE 58; RESP 17; TEMP 36.4; O2SAT 94
--- NOTE | 2022-10-20 16:41 | PCOTNOTE ---
The patient treatment was not able to be completed on 10/20 due to patient was with PT at time. Unable to complete treatment. Will plan to continue treatment per plan of care.
[2022-10-20 22:11] VITALS: BP 143/84; PULSE 75; RESP 20; TEMP 37.1; O2SAT 98
[2022-10-21 06:00] VITALS: BP 164/70; PULSE 67; RESP 20; TEMP 36.9; O2SAT 98
[2022-10-21 06:00] LABS: Basophils Percent Auto 0.6 % (0.2-1.2); Eosinophils Absolute Auto 0.1 K/mm3 (0-0.3); Eosinophils Percent Auto 1.9 % (0-4.4); Hematocrit 37.6 % (37.0-47.0); Hemoglobin 11.7 g/dL (12.0-15.0); Immature Granulocyte Absolute 0.03 K/mm3 (0.00-0.031); Immature Granulocyte Percent A 0.5 % (0-0.5); Lymphocytes Absolute Auto 0.66 K/mm3 (0.9-3.2); Lymphocytes Percent Auto 10.4 % (18.3-44.2); Mean Corpuscular HGB Conc 31.1 g/dl (32-36); Mean Corpuscular Hemoglobin 30.1 pg (26-34); Mean Corpuscular Volume 96.7 fl (80-100); Mean Platelet Volume 12.4 fl (7.4-10.4); Monocytes Absolute Auto 0.7 K/mm3 (0.1-0.6); Monocytes Percent Auto 11.2 % (2.6-8.5); Neutrophils Absolute Auto 4.8 K/mm3 (1.3-6.7); Neutrophils Percent Auto 75.4 % (45.5-73.1); Platelet Count Result 164 k/mm3 (150-375); Red Blood Count 3.89 M/mm3 (4.2-5.4); Red Cell Distribution Width 13.4 % (11.5-14.5); White Blood Count 6.3 K/mm3 (4.5-10.0)
[2022-10-21 06:27] LABS: Alanine Aminotransferase 17 U/L (6-35); Albumin Level 3.3 g/dL (3.5-5.1); Alkaline Phosphatase 62 U/L (38-126); Anion Gap 3 mmol/L (8-16); Aspartate Amino Transferase 26 U/L (14-36); Bilirubin,Total 0.5 mg/dL (0.2-1.3); Blood Urea Nitrogen 28 mg/dL (7-17); Calcium 8.2 mg/dL (8.4-10.2); Carbon Dioxide 25 mmol/L (22-30); Chloride 108 mmol/L (98-107); Estimated CRCL calculation 30 ml/min; Estimated Glomerular Filt Rate 43; Glucose 93 mg/dL (65-110); Potassium 3.6 mmol/L (3.4-5.0); Sodium 136 mmol/L (137-145)
--- NOTE | 2022-10-21 07:46 | PM.IMPN ---
Progress Note: A&P Assessment and Plan (1) CVA (cerebral vascular accident): Code(s): I63.9 - Cerebral infarction, unspecified Status: Acute Assessment and Plan: Left-sided facial droop, left-sided arm weakness left-sided leg weakness with frequent falls ongoing for a couple of weeks uncertain for sure last date or time normal. MRI shows multiple acute ischemic infarcts suggestive of embolic shower from the right MCA. -Hgb A1C 5.6 -Lipid panel with LDL 98 (goal is <70 per neurology) -Started on atorvastatin 40 mg daily -Loaded with plavix and started maintenance dose at 75 mg daily for three months duration -concerns for unilateral depression with recent new disability. Will speak with patient about starting low dose SSRI, citalopram 10 mg given age, renal function, and risk for Qtc prolongation. (2) Hypertension: Code(s): I10 - Essential (primary) hypertension Status: Acute Assessment and Plan: -Blood pressures reviewed. SBP yesterday consistently in the 180s. -started on amlodipine 5 mg. Blood pressures improved with SBP 150-160s. (3) Acute kidney injury: Code(s): N17.9 - Acute kidney failure, unspecified Status: Acute Assessment and Plan: -CR on admission 1.5->1.3->1.1->1.2->1.3->1.2 -Will make sure patient is taking adequate PO intake. -restart low dose fluids Plan Subacute stroke affecting left face, left upper extremity and left lower extremity. Will optimize medical management, place left arm in a sling. -Per Care coordination notes, accepted at [facility] pending insurance. Referrals sent to [facility] as well. -peer to peer was denied for [facility]. Family does not want to appeal. Await acceptance to SNF. -Patient made DNR per records from [facility] Subjective Date/time seen: 10/21/22 07:46 Interval history: HPI obtained from chart: This is a 77-year-old female patient who lives at home alone.? The patient has been complaining of weakness and has had multiple falls.? The patient stated that her left arm went flaccid approximally 2 weeks ago.? The patient stated that her neighbor came in to check on her and found her on the ground.? She has had multiple stages of bruising to both her arms.? The patient does not see a physician regularly nor is she on any home medications. Patient was admitted for further workup with neurology consult. 10/16 Rounding:? Patient seen while eating breakfast seated upright in a chair.? She has left-sided facial droop noted.? Patient also noted to have significantly weakened left upper extremity only able to move at the shoulder.? Left lower extremity with prompt drift.? She states that she does not take any medicines at home does not see a doctor.? She states that her left arm became weak sometime ago estimated to be a couple of weeks ago but she did not want to go for help.? Patient states that when her neighbor saw her condition he had to fight hard to talk her into coming to the hospital for help. 10/17 Rounding:? Patient seen seated in chair discussing with Case Management about rehab placement after hospital stay. Patient remains concerned about rehab stating she wants to go home. Patient does not seem competent to make such decision as she does not understand the severity of her debility or yet know how to perform ADLs and getting around safely given new deficits. Patient denies any pain or problems except unsteadiness and left sided weakness. 10/18:? Patient is seen today sitting in her chair resting.? She is in no acute distress.? She is alert and oriented x4.? I spoke with her about discharge today to an acute rehab Center.? She understands that this is the best choice given her disability with immobility of her left upper extremity and concurrent left lower extremity weakness.? She denies any other complaints. 10/19: Anticipated discharging patient to rehab today however her insurance has declined coverage. I called
[2022-10-21] MEDS: CITALOPRAM HYDROBROMIDE 10 MG TABLET PO (10:03)
[2022-10-21] MEDS: ATORVASTATIN 40 MG TABLET PO (10:03)
[2022-10-21] MEDS: ENOXAPARIN 30 MG/0.3 ML SYRINGE SUB-Q (10:03)
[2022-10-21] MEDS: amLODIPine BESYLATE 5 MG TABLET PO (10:03)
[2022-10-21] MEDS: ASPIRIN 81 MG ENTERIC TABLET PO (10:03)
[2022-10-21] MEDS: CLOPIDOGREL BISULFATE 75 MG TABLET PO (10:03)
[2022-10-21 14:35] VITALS: BP 144/60; PULSE 68; RESP 16; TEMP 36.7; O2SAT 98
[2022-10-21 22:00] VITALS: BP 177/72; PULSE 60; RESP 20; TEMP 36.4; O2SAT 99
--- NOTE | 2022-10-22 07:37 | PM.IMPN ---
Progress Note: A&P Assessment and Plan (1) CVA (cerebral vascular accident): Code(s): I63.9 - Cerebral infarction, unspecified Status: Acute Assessment and Plan: Left-sided facial droop, left-sided arm weakness left-sided leg weakness with frequent falls ongoing for a couple of weeks uncertain for sure last date or time normal. MRI shows multiple acute ischemic infarcts suggestive of embolic shower from the right MCA. -Hgb A1C 5.6 -Lipid panel with LDL 98 (goal is <70 per neurology) -Started on atorvastatin 40 mg daily -Loaded with plavix and started maintenance dose at 75 mg daily for three months duration -concerns for unilateral depression with recent new disability. Will speak with patient about starting low dose SSRI, citalopram 10 mg given age, renal function, and risk for Qtc prolongation. (2) Hypertension: Code(s): I10 - Essential (primary) hypertension Status: Acute Assessment and Plan: -Blood pressures reviewed. SBP yesterday consistently in the 180s. -started on amlodipine 5 mg. Still HTN. Will increase to 10 mg daily. (3) Acute kidney injury: Code(s): N17.9 - Acute kidney failure, unspecified Status: Acute Assessment and Plan: -CR on admission 1.5->1.3->1.1->1.2->1.3->1.2 -Will make sure patient is taking adequate PO intake. -restart low dose fluids Plan Subacute stroke affecting left face, left upper extremity and left lower extremity. Will optimize medical management, place left arm in a sling. -Per Care coordination notes, accepted at [facility] pending insurance. Referrals sent to [facility] as well. -peer to peer was denied for [facility] Family does not want to appeal. Await acceptance to SNF. -Patient made DNR per records from [facility] Subjective Date/time seen: 10/22/22 07:37 Interval history: HPI obtained from chart: This is a 77-year-old female patient who lives at home alone.? The patient has been complaining of weakness and has had multiple falls.? The patient stated that her left arm went flaccid approximally 2 weeks ago.? The patient stated that her neighbor came in to check on her and found her on the ground.? She has had multiple stages of bruising to both her arms.? The patient does not see a physician regularly nor is she on any home medications. Patient was admitted for further workup with neurology consult. 10/16 Rounding:? Patient seen while eating breakfast seated upright in a chair.? She has left-sided facial droop noted.? Patient also noted to have significantly weakened left upper extremity only able to move at the shoulder.? Left lower extremity with prompt drift.? She states that she does not take any medicines at home does not see a doctor.? She states that her left arm became weak sometime ago estimated to be a couple of weeks ago but she did not want to go for help.? Patient states that when her neighbor saw her condition he had to fight hard to talk her into coming to the hospital for help. 10/17 Rounding:? Patient seen seated in chair discussing with Case Management about rehab placement after hospital stay. Patient remains concerned about rehab stating she wants to go home. Patient does not seem competent to make such decision as she does not understand the severity of her debility or yet know how to perform ADLs and getting around safely given new deficits. Patient denies any pain or problems except unsteadiness and left sided weakness. 10/18:? Patient is seen today sitting in her chair resting.? She is in no acute distress.? She is alert and oriented x4.? I spoke with her about discharge today to an acute rehab Center.? She understands that this is the best choice given her disability with immobility of her left upper extremity and concurrent left lower extremity weakness.? She denies any other complaints. 10/19: Anticipated discharging patient to rehab today however her insurance has declined coverage. I called
[2022-10-22 08:25] VITALS: BP 182/73; PULSE 63; RESP 20; TEMP 36.6; O2SAT 99
[2022-10-22 08:38] LABS: Basophils Percent Auto 0.5 % (0.2-1.2); Eosinophils Absolute Auto 0.1 K/mm3 (0-0.3); Eosinophils Percent Auto 1.1 % (0-4.4); Hematocrit 37.4 % (37.0-47.0); Hemoglobin 11.9 g/dL (12.0-15.0); Immature Granulocyte Absolute 0.03 K/mm3 (0.00-0.031); Immature Granulocyte Percent A 0.5 % (0-0.5); Lymphocytes Absolute Auto 0.61 K/mm3 (0.9-3.2); Lymphocytes Percent Auto 9.9 % (18.3-44.2); Mean Corpuscular HGB Conc 31.8 g/dl (32-36); Mean Corpuscular Hemoglobin 29.9 pg (26-34); Mean Platelet Volume 12.1 fl (7.4-10.4); Monocytes Absolute Auto 0.6 K/mm3 (0.1-0.6); Monocytes Percent Auto 9.1 % (2.6-8.5); Neutrophils Absolute Auto 4.9 K/mm3 (1.3-6.7); Neutrophils Percent Auto 78.9 % (45.5-73.1); Platelet Count Result 171 k/mm3 (150-375); Red Blood Count 3.98 M/mm3 (4.2-5.4); Red Cell Distribution Width 13.2 % (11.5-14.5); White Blood Count 6.2 K/mm3 (4.5-10.0)
[2022-10-22 08:56] LABS: Anion Gap 2 mmol/L (8-16); Blood Urea Nitrogen 27 mg/dL (7-17); Calcium 8.5 mg/dL (8.4-10.2); Carbon Dioxide 26 mmol/L (22-30); Chloride 106 mmol/L (98-107); Estimated CRCL calculation 32 ml/min; Estimated Glomerular Filt Rate 48; Glucose 106 mg/dL (65-110); Potassium 3.8 mmol/L (3.4-5.0); Sodium 134 mmol/L (137-145)
[2022-10-22] MEDS: CITALOPRAM HYDROBROMIDE 10 MG TABLET PO (10:08)
[2022-10-22] MEDS: ENOXAPARIN 30 MG/0.3 ML SYRINGE SUB-Q (10:08)
[2022-10-22] MEDS: CLOPIDOGREL BISULFATE 75 MG TABLET PO (10:08)
[2022-10-22] MEDS: ATORVASTATIN 40 MG TABLET PO (10:08)
[2022-10-22] MEDS: ASPIRIN 81 MG ENTERIC TABLET PO (10:08)
[2022-10-22] MEDS: amLODIPine BESYLATE 5 MG TABLET 10 MG PO (10:08)
[2022-10-22] MEDS: ACETAMINOPHEN 325 MG TABLET 650 MG PO (10:10)
[2022-10-22 13:41] VITALS: O2SAT 96
[2022-10-22 14:00] VITALS: BP 149/68; PULSE 67; RESP 16; TEMP 36.6; O2SAT 98
[2022-10-22] MEDS: TROLAMINE SALICYLATE 10% (*BKC) 113 GM CREAM 1 APPLIC TOPICAL ×2 (17:12→20:32)
[2022-10-22 19:57] VITALS: BP 154/71; PULSE 65; RESP 16; TEMP 36.3; O2SAT 97
[2022-10-23 04:24] VITALS: BP 155/76; PULSE 70; RESP 16; TEMP 36.3; O2SAT 100
--- NOTE | 2022-10-23 07:14 | PM.IMPN ---
Progress Note: A&P Assessment and Plan (1) CVA (cerebral vascular accident): Code(s): I63.9 - Cerebral infarction, unspecified Status: Acute Assessment and Plan: Left-sided facial droop, left-sided arm weakness left-sided leg weakness with frequent falls ongoing for a couple of weeks uncertain for sure last date or time normal. MRI shows multiple acute ischemic infarcts suggestive of embolic shower from the right MCA. -Hgb A1C 5.6 -Lipid panel with LDL 98 (goal is <70 per neurology) -Started on atorvastatin 40 mg daily -Loaded with plavix and started maintenance dose at 75 mg daily for three months duration -concerns for unilateral depression with recent new disability. Will speak with patient about starting low dose SSRI, citalopram 10 mg given age, renal function, and risk for Qtc prolongation. (2) Hypertension: Code(s): I10 - Essential (primary) hypertension Status: Acute Assessment and Plan: -Blood pressures reviewed. SBP yesterday consistently in the 180s. -started on amlodipine 5 mg. Still HTN. Will increase to 10 mg daily. (3) Acute kidney injury: Code(s): N17.9 - Acute kidney failure, unspecified Status: Acute Assessment and Plan: -CR on admission 1.5->1.3->1.1->1.2->1.3->1.2 -Will make sure patient is taking adequate PO intake. -restart low dose fluids Plan Subacute stroke affecting left face, left upper extremity and left lower extremity. Will optimize medical management, place left arm in a sling. -Per Care coordination notes, accepted at [facility] pending insurance. Referrals sent to [facility] as well. -peer to peer was denied for [facility]. Family does not want to appeal. Await acceptance to SNF. -Patient made DNR per records from [facility] Subjective Date/time seen: 10/23/22 07:14 Interval history: HPI obtained from chart: This is a 77-year-old female patient who lives at home alone.? The patient has been complaining of weakness and has had multiple falls.? The patient stated that her left arm went flaccid approximally 2 weeks ago.? The patient stated that her neighbor came in to check on her and found her on the ground.? She has had multiple stages of bruising to both her arms.? The patient does not see a physician regularly nor is she on any home medications. Patient was admitted for further workup with neurology consult. 10/16 Rounding:? Patient seen while eating breakfast seated upright in a chair.? She has left-sided facial droop noted.? Patient also noted to have significantly weakened left upper extremity only able to move at the shoulder.? Left lower extremity with prompt drift.? She states that she does not take any medicines at home does not see a doctor.? She states that her left arm became weak sometime ago estimated to be a couple of weeks ago but she did not want to go for help.? Patient states that when her neighbor saw her condition he had to fight hard to talk her into coming to the hospital for help. 10/17 Rounding:? Patient seen seated in chair discussing with Case Management about rehab placement after hospital stay. Patient remains concerned about rehab stating she wants to go home. Patient does not seem competent to make such decision as she does not understand the severity of her debility or yet know how to perform ADLs and getting around safely given new deficits. Patient denies any pain or problems except unsteadiness and left sided weakness. 10/18:? Patient is seen today sitting in her chair resting.? She is in no acute distress.? She is alert and oriented x4.? I spoke with her about discharge today to an acute rehab Center.? She understands that this is the best choice given her disability with immobility of her left upper extremity and concurrent left lower extremity weakness.? She denies any other complaints. 10/19: Anticipated discharging patient to rehab today however her insurance has declined coverage. I called
[2022-10-23 08:00] VITALS: PULSE 70; RESP 16; O2SAT 100
[2022-10-23] MEDS: ASPIRIN 81 MG ENTERIC TABLET PO (09:04)
[2022-10-23] MEDS: amLODIPine BESYLATE 5 MG TABLET 10 MG PO (09:05)
[2022-10-23] MEDS: ATORVASTATIN 40 MG TABLET PO (09:05)
[2022-10-23] MEDS: ENOXAPARIN 30 MG/0.3 ML SYRINGE SUB-Q (09:05)
[2022-10-23] MEDS: CITALOPRAM HYDROBROMIDE 10 MG TABLET PO (09:05)
[2022-10-23] MEDS: CLOPIDOGREL BISULFATE 75 MG TABLET PO (09:05)
[2022-10-23] MEDS: TROLAMINE SALICYLATE 10% (*BKC) 113 GM CREAM 1 APPLIC TOPICAL ×4 (09:06→20:08)
[2022-10-23 14:50] VITALS: BP 111/85; PULSE 73; RESP 18; TEMP 36.7; O2SAT 99
[2022-10-23 22:00] VITALS: BP 126/64; PULSE 65; RESP 21; TEMP 36.7; O2SAT 100
[2022-10-24 06:00] VITALS: BP 153/96; PULSE 64; RESP 20; TEMP 36.6; O2SAT 98
--- NOTE | 2022-10-24 07:16 | PM.IMPN ---
Progress Note: A&P Assessment and Plan (1) CVA (cerebral vascular accident): Code(s): I63.9 - Cerebral infarction, unspecified Status: Acute Assessment and Plan: Left-sided facial droop, left-sided arm weakness left-sided leg weakness with frequent falls ongoing for a couple of weeks uncertain for sure last date or time normal. MRI shows multiple acute ischemic infarcts suggestive of embolic shower from the right MCA. -Hgb A1C 5.6 -Lipid panel with LDL 98 (goal is <70 per neurology) -Started on atorvastatin 40 mg daily -Loaded with plavix and started maintenance dose at 75 mg daily for three months duration -concerns for unilateral depression with recent new disability. Will speak with patient about starting low dose SSRI, citalopram 10 mg given age, renal function, and risk for Qtc prolongation. (2) Hypertension: Code(s): I10 - Essential (primary) hypertension Status: Acute Assessment and Plan: -Blood pressures reviewed. SBP yesterday consistently in the 180s. -started on amlodipine 5 mg. Still HTN. Will increase to 10 mg daily. (3) Acute kidney injury: Code(s): N17.9 - Acute kidney failure, unspecified Status: Acute Assessment and Plan: -CR on admission 1.5->1.3->1.1->1.2->1.3->1.2 -Will make sure patient is taking adequate PO intake. -restart low dose fluids Plan Subacute stroke affecting left face, left upper extremity and left lower extremity. Will optimize medical management, place left arm in a sling. -peer to peer was denied for [facility]. Family does not want to appeal. Await acceptance to SNF. -Patient made DNR per records from [facility] Subjective Date/time seen: 10/24/22 07:16 Interval history: HPI obtained from chart: This is a 77-year-old female patient who lives at home alone.? The patient has been complaining of weakness and has had multiple falls.? The patient stated that her left arm went flaccid approximally 2 weeks ago.? The patient stated that her neighbor came in to check on her and found her on the ground.? She has had multiple stages of bruising to both her arms.? The patient does not see a physician regularly nor is she on any home medications. Patient was admitted for further workup with neurology consult. 10/16 Rounding:? Patient seen while eating breakfast seated upright in a chair.? She has left-sided facial droop noted.? Patient also noted to have significantly weakened left upper extremity only able to move at the shoulder.? Left lower extremity with prompt drift.? She states that she does not take any medicines at home does not see a doctor.? She states that her left arm became weak sometime ago estimated to be a couple of weeks ago but she did not want to go for help.? Patient states that when her neighbor saw her condition he had to fight hard to talk her into coming to the hospital for help. 10/17 Rounding:? Patient seen seated in chair discussing with Case Management about rehab placement after hospital stay. Patient remains concerned about rehab stating she wants to go home. Patient does not seem competent to make such decision as she does not understand the severity of her debility or yet know how to perform ADLs and getting around safely given new deficits. Patient denies any pain or problems except unsteadiness and left sided weakness. 10/18:? Patient is seen today sitting in her chair resting.? She is in no acute distress.? She is alert and oriented x4.? I spoke with her about discharge today to an acute rehab Center.? She understands that this is the best choice given her disability with immobility of her left upper extremity and concurrent left lower extremity weakness.? She denies any other complaints. 10/19: Anticipated discharging patient to rehab today however her insurance has declined coverage. I called scheduled peer to peer for tomorrow at 10 am. Patient is doing well today her only complaints are right-sided arm pain whi
--- NOTE | 2022-10-24 07:57 | PCNWS ---
Weekly nutritional screen. Patient is tolerating current diet with adequate intake. No weight loss reported. No nutritional needs at this time.
[2022-10-24 08:49] VITALS: BP 161/88; PULSE 78; O2SAT 92
[2022-10-24] MEDS: ASPIRIN 81 MG ENTERIC TABLET PO (08:51)
[2022-10-24] MEDS: CITALOPRAM HYDROBROMIDE 10 MG TABLET PO (08:51)
[2022-10-24] MEDS: CLOPIDOGREL BISULFATE 75 MG TABLET PO (08:51)
[2022-10-24] MEDS: amLODIPine BESYLATE 5 MG TABLET 10 MG PO (08:52)
[2022-10-24] MEDS: ENOXAPARIN 30 MG/0.3 ML SYRINGE SUB-Q (08:52)
[2022-10-24] MEDS: ATORVASTATIN 40 MG TABLET PO (08:52)
[2022-10-24] MEDS: TROLAMINE SALICYLATE 10% (*BKC) 113 GM CREAM 1 APPLIC TOPICAL ×3 (12:42→19:55)
[2022-10-24 14:00] VITALS: BP 148/54; PULSE 74; RESP 16; TEMP 36.4; O2SAT 98
[2022-10-24 19:21] VITALS: BP 162/78; PULSE 69; RESP 18; TEMP 36.8; O2SAT 98
[2022-10-25 04:20] VITALS: BP 164/74; PULSE 71; RESP 18; TEMP 36.3; O2SAT 97
[2022-10-25] MEDS: CITALOPRAM HYDROBROMIDE 10 MG TABLET PO (10:04)
[2022-10-25] MEDS: amLODIPine BESYLATE 5 MG TABLET 10 MG PO (10:04)
[2022-10-25] MEDS: ASPIRIN 81 MG ENTERIC TABLET PO (10:04)
[2022-10-25] MEDS: CLOPIDOGREL BISULFATE 75 MG TABLET PO (10:04)
[2022-10-25] MEDS: ATORVASTATIN 40 MG TABLET PO (10:05)
[2022-10-25 10:21] VITALS: BP 131/62; PULSE 71
[2022-10-25] MEDS: ENOXAPARIN 30 MG/0.3 ML SYRINGE SUB-Q (10:23)
[2022-10-25] MEDS: TROLAMINE SALICYLATE 10% (*BKC) 113 GM CREAM 1 APPLIC TOPICAL (10:24)
--- NOTE | 2022-10-25 10:33 | PM.DS ---
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 Patient kept falling and finally her neighbor was able to convince her to come to the hospital. Hospital Course: This is a 77-year-old female patient who was admitted to the hospital for a subacute stroke with MRI findings concerning for shower or clots from right MCA. Patient presented up to a few weeks after start of symptoms. She was started on aspirin and amlodipine for blood pressure control. During the course of her hospitalization patient went from denying there was a problem to stage of depression related to inability to ambulate and take care for self requiring SNF placement upon discharge. Celexa [address] and will be continued upon discharge. Patient was accepted to [facility]. Status at Discharge Cognitive/behavioral status at discharge: Awake, alert but depressed Functional status at discharge: wheelchair bound Overall status at discharge: patient is not back to baseline Time Spent with Patient Time attestation: Total time spent providing and/or coordinating discharge services: Time spent: Greater than 30 minutes Exam Narrative: General: thin an d nearly cachectic , chronically ill appearing? 77-year -old female, layin g in bed Neuro: aw yusef, alert and clarence ented x3, speech c lear, left facial droop present, lef t side neglect, le ft arm flaccid, le ft leg severely we akened, unchanged from prior exams H EENMT:? normocepha lic, atraumatic, E MORENO, sclerae anict paloma, moist oral m ucosa Respiratory: ? Clear to auscult ation bilaterally without crackles, rhonchi or wheezes , nonlabored breat catrachito Cardio: regul ar rate, regular r hythm with S1-S2 A bdomen:? nondisten ded, normoactive b owel sounds, soft, nontender to palp ation Extremities: no edema, erythem a, or tenderness t o palpation, DP pu lses 2+ bilaterall y. Musculoskeletal : left upper arm i s flaccid but sens ation intact, LLE with 3/5 strength Skin: no rashes or lesions, warm and dry, generalized bruising to left s rudolph of neck, arm, and hip and bruisi ng to bilateral ar ms from IVs and bl ood draws Psych: Patient appeared a nxious and depress ed upon notificati on of discharge to SNF today ? DS: Data Data Completed and Pending Completed studies during hospitalization: Head and neck CTA, chest x-ray, brain MRI, echocardiogram Pending studies at discharge: None Labs on day of discharge: None Discharge Plan Discharge Attending physician on discharge: Janie Miller Consulting providers: Tru Pettit; Mike Kalpan Discharging Clinician: Mike Kaplan Anticipated Discharge Date/Time: 10/18/22 14:42 Patient Disposition: SNF Activity: july shower Diet: as tolerated and regular Discharge Instructions: You were admitted after your neighbors had concerns for your well being. You were slightly confused and had left extremity weakness and facial droop. Your last known well was unknown so we wer
[2022-10-25 12:12] LABS: SARS-CoV-2 RNA PCR Negative (Negative)
[2022-10-25 13:52] VITALS: BP 128/61; PULSE 76; RESP 18; TEMP 35.9; O2SAT 98
== END 2022-10-25 15:00 | DRG 65 ==
LOC: ANHED 13:11 → ANH2MED 14:58
PROVIDERS: Nurse Practitioner; Nurse Practitioner Acute Care; Student in an Organized Health Care Education/Training Program; Admitting Provider Family Medicine; Emergency Provider Emergency Medicine; Visit Provider Nurse Practitioner
DX: I63.411 Cerebral infarction due to embolism of right middle cerebral artery (principal); G81.94 Hemiplegia, unspecified affecting left nondominant side; N17.9 Acute kidney failure, unspecified; R64 Cachexia; Z68.1 Body mass index [BMI] 19.9 or less, adult; I69.398 Other sequelae of cerebral infarction; F06.32 Mood disorder due to known physiological condition with major depressive-like episode; R29.810 Facial weakness; I10 Essential (primary) hypertension; Z20.822 Contact with and (suspected) exposure to COVID-19; F06.31 Mood disorder due to known physiological condition with depressive features; R29.708 NIHSS score 8; Z66 Do not resuscitate
CPT/HCPCS: 36415; 70496; 70498; 70553; 71045; 80048; 80053; 80061; 81001; 82550; 83036; 83605; 83721; 83735; 84443; 85025; 85027; 85610; 85730; 87635; 92610; 93005; 93306; 96360; 96361; 97110; 97112; 97161; 97166; 97530; 97535; 99285; A4565; A9270; A9577; G0378; J1650; J7030; Q9967

== ENCOUNTER 2023-01-30 07:59 | Emergency (ER) | payer MEDICARE, SELFPAY ==
--- NOTE | ~2023-01-30 | CT_ITS ---
CT head without contrast Indication: Status post fall COMPARISON: 10/15/2022 Technique: Serial scans were obtained through the brain without the administration of contrast. Dose reduction technique was used on this scan by utilizing automated exposure control and iterative recon struction technique. The dose-length product (DLP) was 605.33 mGy-cm. Findings: There is no evidence of intracranial hemorrhage, mass lesion, or acute infarct. The ventri cles and subarachnoid spaces are dilated, consistent with mild to moderate atrophy. Low attenuation regions are seen within the periventricular white matter bilaterally, likely representing changes fro m chronic microvascular ischemic disease. There is no evidence of edema, mass effect or midline shif t. Right maxillary sinus disease present. The remaining visualized paranasal sinuses and mastoid air cells are clear. Impression: No intracranial hemorrhage, mass, or acute infarct. Atrophy and chronic white matter changes, as above. Right maxillary sinus disease. Reviewed, dictated and finalized at location . RAM RESEARCH SPECIALIST Impression: No intracranial hemorrhage, mass, or acute infarct. Atrophy and chronic white matter changes, as above. Right maxillary sinus disease.
[2023-01-30 07:58] VITALS: BP 104/91; PULSE 108; RESP 18; TEMP 36.2; O2SAT 98
--- NOTE | 2023-01-30 08:10 | ED.FALL ---
HPI - Fall General Chief Complaint: Fall Stated Complaint: fall Time Seen by Provider: 01/30/23 08:07 History of Present Illness HPI Narrative: Pt rolled out of bed onto floor this morning. Pt deniesw injury. Pt says had some pain in left arm yesterday but none today. Pt denies cp or SOB. Pt denies LOC or COLEMAN or neck pain. Pt on Plavix. Related Data Allergies Allergy/AdvReac Type Severity Reaction Status Date / Time Penicillins Allergy Unknown Verified 10/15/22 17:45 Review of Systems Review of Systems: All systems reviewed & are unremarkable except as noted in HPI and below PMFSH Past Medical History Medical History CVA (cerebral vascular accident) Hypertension Surgical History Surgical History No pertinent past surgical history Family History Family History Other Unknown family medical history Social History Social History Social History: The patient lives home alone. She was a [id number] . She did not have any children. She is . She is lifelong nonsmoker. She does not use any alcohol marijuana or illicit drugs. Code status full code Smoking status: Never smoker Alcohol intake: former Substance use: never Substance use type: does not use Lack of Transportation: No Lack of Food: Never True Current Housing: I Have Housing Concerned About Future Housing: No Difficulty Paying Gas/Electric Bills: No Difficulty Paying for Meds: No Currently Unemployed: No Education: Don't Know Difficulty w/ Childcare or Family Care: No Spiritual care concerns: No Exam Const: General: healthy appearing and no acute distress Nutritional Appearance: thin Orientation/consciousness: patient oriented x3 Limitations: no limitations HENMT: Head: normal to inspection Neck: Neck: normal visual inspection Other: no midline tenderness full ROM Chest: Chest palpation & inspection: normal inspection of the chest Resp: Effort & Inspection: normal respiratory effort Auscultation: clear to auscultation bilaterally Cardio: Rate: regular rate Rhythm: regular rhythm GI: Auscultation: normal bowel sounds Back/Spine/Pelvis: Back: no CVA tenderness Skin: General skin exam: normal color Rashes: no rashes Wounds: no wounds Neuro: General: patient oriented x3, moves all extremities, no meningeal signs and CN's II-XI intact bilaterally Cranial nerves: Yes Nystagmus not present Speech: normal speech Extrem: General: normal to inspection and no clubbing, cyanosis or edema Psych: Mental Status: mental status grossly normal Affect: normal affect Attitude: cooperative Course Vital Signs Vital signs: Vital Signs Temperature 97.1 F L 01/30/23 07:58 Pulse Rate 108 H 01/30/23 07:58 Respiratory Rate 18 01/30/23 07:58 Blood Pressure 104/91 H 01/30/23 07:58 Pulse Oximetry 98 01/30/23 07:58 Temperature 97.1 F L 01/30/23 07:58 Pulse Rate 61 01/30/23 09:01 Respiratory Rate 17 01/30/23 09:01 Blood Pressure 151/60 H 01/30/23 09:01 Pulse Oximetry 100 01/30/23 08:45 MDM - Fall MDM Narrative Medical decision making narrative: Pt rolled out of bed this mrning. Pt has no complaints of pain but is on plavix so will order CT brain to be safe. If ok can go back to NH. Discharge Plan Discharge Clinical Impression: Fall, Head injury Patient Disposition: Home, Self-Care Condition: Stable Instructions: Antibiotic Form, Head Injury (ED) Prescriptions: No Action atorvastatin 40 mg Tablet 40 mg PO DAILY 30 Days Qty: 30 0RF clopidogrel 75 mg Tablet 75 mg PO QAM 30 Days Qty: 30 0RF aspirin 81 mg Tablet,Delayed Release (Dr/Ec) 81 mg PO QAM 30 Days Qty: 30 0RF acetaminophen [Mapap (acetaminophen)] 325 mg T
[2023-01-30 08:28] VITALS: BP 153/61; PULSE 63; RESP 16; O2SAT 100
[2023-01-30 08:45] VITALS: BP 132/84; PULSE 62; RESP 16; O2SAT 100
[2023-01-30 09:01] VITALS: BP 151/60; PULSE 61; RESP 17
--- NOTE | 2023-01-30 09:13 | PC.NURSE ---
Report called to [facility]
== END 2023-01-30 09:47 ==
PROVIDERS: Emergency Provider Emergency Medicine
DX: S09.90XA Unspecified injury of head, initial encounter (principal); I10 Essential (primary) hypertension; Z86.73 Personal history of transient ischemic attack (TIA), and cerebral infarction without residual deficits; W06.XXXA Fall from bed, initial encounter
CPT/HCPCS: 70450; 99284

== ENCOUNTER 2023-03-31 23:42 | Emergency (ER) | payer MEDICARE, SELFPAY ==
--- NOTE | ~2023-03-31 | CT_ITS ---
EXAMINATION: CT brain wo con DATE: 04/01/2023 00:21 INDICATION: Head injury, neck pain TECHNIQUE: Computed tomography (CT) of the head was performed without intravenous contrast. The mA wa s adjusted according to patient size. Iterative reconstruction technique was employed. Exam dose: 96 .06 mGy-cm total exam DLP. COMPARISON: 01/30/2023 CT brain FINDINGS: Chronic focal infarct high over the right frontoparietal convexity. Old left posterior cerebellar hemispheric infarct. Bilateral carotid siphon internal carotid artery calcifications. There is nonspecific diminished atte nuation cerebral white matter, likely due to chronic small vessel ischemic changes. No intracranial mass lesion or hemorrhage or recent cerebrovascular infarct, midline shift or mass ef fect effect or subdural or epidural hematoma is detected. Moderately prominent central and cortical cerebral atrophy, mild cerebellar atrophy. There is chronic complete opacification of the right maxillary sinus. There is patchy opacification o f ethmoid air cells bilaterally, greater on the right and prominent mucoperiosteal thickening of the right frontal sinus. The mastoid air cells are normally developed and aerated. No fracture or bone destruction of the cranial vault. IMPRESSION: Old right frontoparietal and left cerebellar infarcts Cerebral atherosclerosis and chronic small vessel ischemic changes of the cerebral white matter No acute intracranial finding Chronic complete opacification right mastoid sinus, patchy opacification of ethmoid air cells bilater ally and opacity in the right frontal sinus Reviewed, dictated and finalized at Location [facility]. Reviewed, dictated and finalized at location A. ER OR CHOREOGRAPHER IMPRESSION: Old right frontoparietal and left cerebellar infarcts Cerebral atherosclerosis and chronic small vessel ischemic changes of the cereb ral white matter No acute intracranial finding Chronic complete opacification right mastoid sinus, patchy opacification of eth moid air cells bilaterally and opacity in the right frontal sinus
--- NOTE | ~2023-03-31 | CT_ITS ---
EXAMINATION: CT cervical spine wo con DATE: 04/01/2023 00:22 INDICATION: Head injury, neck pain TECHNIQUE: Computed tomography (CT) of the cervical spine was performed without intravenous contrast. Automated exposure control and iterative reconstruction technique were employed. Exam dose: 681.00 mGy-cm total exam DLP. COMPARISON: None FINDINGS: There is prominent dextro scoliosis of the thoracic spine with some compensatory levoscolio sis of the cervical spine. Cervical curvature is intact. No fracture or dislocation or locked facet or prevertebral soft tissue swelling. C1 and C2 are normally aligned and the odontoid process is intact. There is mild degenerative disc disease and posterior spurring at C2-3. There is mild degenerative disease and posterior spurring at C3-4. There is severe degenerative disc disease, posterior spurring and mild retrolisthesis at C4-5 and C5- 6. There is moderate degenerative disc disease, mild posterior spurring and minimal anterolisthesis at C 6-7. There is mild anterolisthesis at C7-T1 and T1-T2. There is degenerative change at the apophyseal joints throughout the cervical spine. There is uncover tebral joint spurring throughout the cervical spine. IMPRESSION: Prominent cervical spondylosis; no fracture or dislocation or locked facet Reviewed, dictated and finalized at [facility]. Reviewed, dictated and finalized at location A. NUE AGENT IMPRESSION: Prominent cervical spondylosis; no fracture or dislocation or lock ed facet
[2023-03-31 23:40] VITALS: BP 153/85; PULSE 75; RESP 18; TEMP 36.6; O2SAT 100
--- NOTE | 2023-04-01 00:50 | ED.GENADULT ---
HPI - General Adult General Chief complaint: Fall Stated complaint: fall on blood thinners Time Seen by Provider: 03/31/23 23:50 History of Present Illness HPI narrative: Patient is a 78-year-old female who presents to emergency department with chief complaint of fall. Patient is a resident of a local nursing facility and is normally confused the patient reported that she slid out of her chair onto the ground and then the slid underneath the bed striking her head the patient reports no loss of consciousness but per the facility reports he is on both aspirin and Plavix. Patient reports no pain at this time Related Data Allergies Allergy/AdvReac Type Severity Reaction Status Date / Time Penicillins Allergy Unknown Verified 10/15/22 17:45 Review of Systems Review of Systems: A 10 system review of systems was completed on the patient and is negative except for what is stated in the HPI. Nursing and ancillary documentation was reviewed. PMFSH Past Medical History Medical History CVA (cerebral vascular accident) Hypertension Surgical History Surgical History No pertinent past surgical history Family History Family History Other Unknown family medical history Social History Social History Social History: The patient lives home alone. She was a [id number] . She did not have any children. She is . She is lifelong nonsmoker. She does not use any alcohol marijuana or illicit drugs. Code status full code Smoking status: Never smoker Alcohol intake: former Substance use: never Substance use type: does not use Lack of Transportation: No Lack of Food: Never True Current Housing: I Have Housing Concerned About Future Housing: No Difficulty Paying Gas/Electric Bills: No Difficulty Paying for Meds: No Currently Unemployed: No Education: Don't Know Difficulty w/ Childcare or Family Care: No Spiritual care concerns: No Exam Narrative: GENERAL: Well-appearing, well-nourished, and in no acute distress. HEAD: Normocephalic, atraumatic. EYES: PERRLA and EOMI. ENT: Nares clear, no rhinorrhea or epistaxis. Mucous membranes moist. NECK: Supple. CHEST: Clear to auscultation. No respiratory distress. HEART: Regular rate and rhythm. No murmur heard. Normal peripheral pulses. ABDOMEN: Soft, nontender, nondistended, normal active bowel sounds. EXTREMITIES: Normal range of motion. No edema. SKIN: Warm, dry, no rash. NEURO: No focal deficits. Alert and oriented x2. PSYCH: Normal mood and affect. Course Vital Signs Vital signs: Vital Signs Temperature 36.6 C 03/31/23 23:40 Pulse Rate 75 03/31/23 23:40 Respiratory Rate 18 03/31/23 23:40 Blood Pressure 153/85 H 03/31/23 23:40 Pulse Oximetry 100 03/31/23 23:40 Oxygen Delivery Room Air 03/31/23 23:40 Temperature 36.6 C 03/31/23 23:40 Pulse Rate 75 03/31/23 23:40 Respiratory Rate 18 03/31/23 23:40 Blood Pressure 153/85 H 03/31/23 23:40 Pulse Oximetry 100 03/31/23 23:40 Oxygen Delivery Room Air 03/31/23 23:40 Medical Decision Making MDM Narrative Medical decision making narrative: Differential diagnosis intracranial hemorrhage, cervical spine fracture CT head showed no evidence of acute intracranial hemorrhage, CT C-spine showed no evidence of fracture Vital Signs Vital Signs: Vital Signs Temperature 36.6 C 03/31/23 23:40 Pulse Rate 75 03/31/23 23:40 Respiratory Rate 18 03/31/23 23:40 Blood Pressure 153/85 H 03/31/23 23:40 Pulse Oximetry 100 03/31/23 23:40 Oxygen Delivery Room Air 03/31/23 23:40 Temperature 36.6 C 03/31/23 23:40 Pulse Rate 75 03/31/23 23:40 Respiratory Rate 18 03/31/23
== END 2023-04-01 01:49 ==
LOC: ANHED 04-01 01:09
PROVIDERS: Emergency Provider Emergency Medicine
DX: S09.90XA Unspecified injury of head, initial encounter (principal); I10 Essential (primary) hypertension; Z86.73 Personal history of transient ischemic attack (TIA), and cerebral infarction without residual deficits; M47.812 Spondylosis without myelopathy or radiculopathy, cervical region; I67.2 Cerebral atherosclerosis; W07.XXXA Fall from chair, initial encounter
CPT/HCPCS: 70450; 72125; 99284

== ENCOUNTER 2023-05-29 02:29 | Emergency (ER) | payer MEDICARE, SELFPAY ==
--- NOTE | ~2023-05-29 | XR_ITS ---
EXAMINATION: XR chest 1V portable DATE: 05/29/2023 03:05 INDICATION: Chest pain. TECHNIQUE: A single frontal view of the chest was obtained. COMPARISON: Chest single view 10/15/2022 FINDINGS: The patient is rotated to her left. There are mild airspace opacities in right lower lung z one. Calcified left lung nodules are consistent with old granulomatous disease. No pleural effusion o r pneumothorax. The heart size is normal. IMPRESSION: 1. Mild airspace opacities in right lower lung zone, likely atelectasis. Reviewed, dictated and finalized at location E. INSTRUCTOR
[2023-05-29 02:38] VITALS: BP 109/50; PULSE 64; RESP 13; TEMP 36.6; O2SAT 99
--- NOTE | 2023-05-29 02:42 | ECG_ITS ---
Measurements Intervals [place] Rate: 60 P: 65 WV: 136 QRS: -30 QRSD: 96 T: 54 QT: 425 QTc: 428 Interpretive Statements SINUS RHYTHM INCOMPLETE RIGHT BUNDLE BRANCH BLOCK LEFT VENTRICULAR HYPERTROPHY WITH ST-T CHANGE BASELINE ARTIFACT- I, II, III, AVR, AVL, AVF, V1-V6 BORDERLINE ECG COMPARED TO ECG 10/15/2022 12:28:41 INCOMPLETE RIGHT BUNDLE-BRANCH BLOCK NOW PRESENT Electronically Signed On 05-29-2023 15:07:51 RECHECKER by Gideon Rodriguez D.O.
[2023-05-29 02:58] LABS: Basophils Percent Auto 0.5 % (0.2-1.2); Eosinophils Absolute Auto 0.1 K/mm3 (0-0.3); Eosinophils Percent Auto 1.2 % (0-4.4); Hematocrit 35.4 % (37.0-47.0); Hemoglobin 10.6 g/dL (12.0-15.0); Immature Granulocyte Absolute 0.02 K/mm3 (0.00-0.031); Immature Granulocyte Percent A 0.3 % (0-0.5); Lymphocytes Absolute Auto 1.36 K/mm3 (0.9-3.2); Lymphocytes Percent Auto 18.3 % (18.3-44.2); Mean Corpuscular HGB Conc 29.9 g/dl (32-36); Mean Corpuscular Hemoglobin 27.5 pg (26-34); Mean Corpuscular Volume 91.7 fl (80-100); Mean Platelet Volume 10.2 fl (7.4-10.4); Monocytes Percent Auto 12.9 % (2.6-8.5); Neutrophils Percent Auto 66.8 % (45.5-73.1); Platelet Count Result 267 k/mm3 (150-375); Red Blood Count 3.86 M/mm3 (4.2-5.4); Red Cell Distribution Width 17.4 % (11.5-14.5); White Blood Count 7.4 K/mm3 (4.5-10.0)
[2023-05-29 03:08] LABS: Alanine Aminotransferase 28 U/L (6-35); Albumin Level 3.9 g/dL (3.5-5.1); Alkaline Phosphatase 69 U/L (38-126); Anion Gap 8 mmol/L (8-16); Aspartate Amino Transferase 29 U/L (14-36); Bilirubin,Total 0.5 mg/dL (0.2-1.3); Blood Urea Nitrogen 34 mg/dL (7-17); Calcium 9.4 mg/dL (8.4-10.2); Carbon Dioxide 26 mmol/L (22-30); Chloride 107 mmol/L (98-107); Estimated CRCL calculation 28 ml/min; Estimated Glomerular Filt Rate 53; Glucose 101 mg/dL (65-110); Hypochromasia 1+ (NORMAL); INR 1.1; Platelet Estimate Adequate (Adequate); Potassium 3.7 mmol/L (3.4-5.0); Prothrombin Time 14.5 Seconds (11.1-14.7); Schistocytes None Seen (NORMAL); Sodium 141 mmol/L (137-145)
[2023-05-29 03:09] LABS: Partial Thromboplastin Time 29.6 SECONDS (22.3-36.8)
[2023-05-29 03:20] LABS: NT Pro B Type Natriuretic Pept 678 pg/mL (19.9-100); Troponin I < 0.012 ng/mL (0.000-0.034)
--- NOTE | 2023-05-29 03:34 | ED.CHESTPAIN ---
HPI - Chest Pain General Chief Complaint: Chest Pain Stated Complaint: ?chest pain Time Seen by Provider: 05/29/23 02:46 History of Present Illness HPI narrative: Patient is a 78-year-old female who presents to the emergency department this evening from her extended care facility for evaluation for chest pain. Patient is alert and oriented times 1-2 at baseline. Upon arrival, patient is denying any chest and states that she feels fine. She is currently denying any additional symptoms including shortness of breath, nausea, vomiting, abdominal pain, dysuria, hematuria, constipation, diarrhea, melena, hematochezia, fevers or chills. Patient is answering all my questions appropriately and following my commands. There are no other modifying, alleviating, or precipitating factors at this time. Related Data Allergies Allergy/AdvReac Type Severity Reaction Status Date / Time Penicillins Allergy Unknown Verified 10/15/22 17:45 Review of Systems Review of Systems: All systems are reviewed and are negative unless stated otherwise in the HPI. [facility] Past Medical History Medical History CVA (cerebral vascular accident) Hypertension Surgical History Surgical History No pertinent past surgical history Family History Family History Other Unknown family medical history Social History Social History Social History: The patient lives home alone. She was a [id number] . She did not have any children. She is . She is lifelong nonsmoker. She does not use any alcohol marijuana or illicit drugs. Code status full code Smoking status: Never smoker Alcohol intake: former Substance use: never Substance use type: does not use Lack of Transportation: No Lack of Food: Never True Current Housing: I Have Housing Concerned About Future Housing: No Difficulty Paying Gas/Electric Bills: No Difficulty Paying for Meds: No Currently Unemployed: No Education: Don't Know Difficulty w/ Childcare or Family Care: No Spiritual care concerns: No Exam Narrative: General: Alert, awake, afebrile, in no acute distress. HEENT: PERRL, no rhinorrhea, no post nasal drip, oropharynx clear. Neck: Trachea midline, no JVD, no lymphadenopathy. Cardiovascular: Regular rate and rhythm, no murmurs, rubs or gallops, no peripheral edema. Respiratory: Clear to auscultation bilaterally, no tachypnea, no wheezing, no rhonchi, no rubs, no respiratory distress. Abdomen: Soft, nontender, nondistended, no rebound, no guarding, no peritoneal signs. Musculoskeletal: No joint swelling or deformity, normal muscle tone. Skin: No rashes or petechia, no signs of infection. Psychiatric: Alert and oriented, normal behavior and judgment for situation. Neurological: Alert and oriented to person, place, and situation. Follows all commands. No focal deficits, speech is clear and fluent. Course Vital Signs Vital signs: Vital Signs Temperature 97.9 F 05/29/23 02:38 Pulse Rate 64 05/29/23 02:38 Respiratory Rate 13 05/29/23 02:38 Blood Pressure 109/50 L 05/29/23 02:38 Pulse Oximetry 99 05/29/23 02:38 Oxygen Delivery Room Air 05/29/23 02:38 Temperature 97.9 F 05/29/23 02:38 Pulse Rate 64 05/29/23 02:38 Respiratory Rate 13 05/29/23 02:38 Blood Pressure 109/50 L 05/29/23 02:38 Pulse Oximetry 99 05/29/23 02:38 Oxygen Delivery Room Air 05/29/23 02:38 MDM - Chest Pain MDM Narrative Medical decision making narrative: The patient was evaluated by myself in the emergency department. History is obtained from patient who is an independent historian along with EMS and physical exam was performed. External medical records were reviewed at this time. IV was established and per
[2023-05-29 03:45] VITALS: BP 109/59; PULSE 69; RESP 18; O2SAT 100
[2023-05-29 03:50] VITALS: PULSE 61
== END 2023-05-29 04:50 ==
LOC: ANHED 03:56
PROVIDERS: Emergency Provider Emergency Medicine
DX: R07.9 Chest pain, unspecified (principal); I10 Essential (primary) hypertension; Z86.73 Personal history of transient ischemic attack (TIA), and cerebral infarction without residual deficits; I45.10 Unspecified right bundle-branch block; I51.7 Cardiomegaly
CPT/HCPCS: 36415; 71045; 80053; 83880; 84484; 85025; 85610; 85730; 93005; 99284

== ENCOUNTER 2023-07-31 12:58 | Emergency (ER) | payer MEDICARE, SELFPAY ==
--- NOTE | ~2023-07-31 | XR_ITS ---
EXAMINATION: XR forearm LT 2V, XR elbow LT 2V DATE: 07/31/2023 15:07 INDICATION: Left arm injury with forearm swelling and hematoma post fall TECHNIQUE: 1. AP, lateral and 2 oblique views of the left elbow were obtained. 2. AP an lateral views of the left forearm were obtained. COMPARISON: none FINDINGS: Bone alignment is normal. No fracture. Mild osteoarthritis at the left elbow. Additional osteoarthrit is at the left wrist and carpus which is suboptimally profiled on the provided projection. No evident elbow joint effusion. There is a 9.4 x 3.1 cm ovoid subcutaneous mass of relatively homogeneous soft tissue density projecting over the posterolateral aspect of the proximal forearm which in the settin g of swallowing following the acute trauma most likely represents a large hematoma. IMPRESSION: 1. 5.4 x 3.1 cm ovoid subcutaneous mass likely representing a subcutaneous hematoma at the posterolat eral left forearm. No acute osseous abnormality. Reviewed, dictated and finalized at location A. IMPRESSION: 1. 5.4 x 3.1 cm ovoid subcutaneous mass likely representing a subcutaneous katie teresa at the posterolateral left forearm. No acute osseous abnormality.
--- NOTE | ~2023-07-31 | US_ITS ---
EXAMINATION: US venous doppler UE DATE: 07/31/2023 15:32 INDICATION: arm swelling/ hematoma after fall . TECHNIQUE: Grayscale ultrasound images without and with compression and Doppler ultrasound images of the left upper extremity veins were obtained. COMPARISON: None. FINDINGS: The visualized portions of the left internal jugular vein, subclavian vein, axillary vein, brachial v eins, basilic vein, cephalic vein, radial vein, and ulnar vein are patent. Difficulty compressing the basilic vein completely due to body habitus and mobility issues. 2.0 x 4.6 x 10.7 cm heterogeneous s ubcutaneous collection posterior to the elbow/forearm. IMPRESSION: No acute deep venous thrombosis. Subcutaneous collection posterior to the elbow and forearm, likely hematoma in the absence of signs o f infection. Reviewed, dictated and finalized at location K. IMPRESSION: No acute deep venous thrombosis. Subcutaneous collection posterior to the elbow and forearm, likely hematoma in the absence of signs of infection.
[2023-07-31 13:00] VITALS: BP 136/86; PULSE 68; RESP 16; TEMP 36.9; O2SAT 100
--- NOTE | 2023-07-31 15:13 | ED.GENADULT ---
HPI - General Adult General Chief complaint: Extremity Injury, Upper Stated complaint: bruise to arm from 07/27/23 Time Seen by Provider: 07/31/23 13:34 History of Present Illness HPI narrative: 78-year-old female present to the emergency department from local custodial for evaluation for left arm ecchymosis. Patient had a ground level fall had negative x-rays but does have extensive ecchymosis and hematoma on the left lateral forearm. Patient was sent in the emergency department for further evaluation. Patient does have dementia at baseline and does not recall the fall. Related Data Allergies Allergy/AdvReac Type Severity Reaction Status Date / Time Penicillins Allergy Unknown Verified 10/15/22 17:45 Review of Systems Review of Systems: All systems reviewed & are unremarkable except as noted in HPI and below PMFSH Past Medical History Medical History CVA (cerebral vascular accident) Hypertension Surgical History Surgical History No pertinent past surgical history Family History Family History Other Unknown family medical history Social History Social History Social History: The patient lives home alone. She was a [id number] . She did not have any children. She is . She is lifelong nonsmoker. She does not use any alcohol marijuana or illicit drugs. Code status full code Smoking status: Never smoker Alcohol intake: former Substance use: never Substance use type: does not use Lack of Transportation: No Lack of Food: Never True Current Housing: I Have Housing Concerned About Future Housing: No Difficulty Paying Gas/Electric Bills: No Difficulty Paying for Meds: No Currently Unemployed: No Education: Don't Know Difficulty w/ Childcare or Family Care: No Spiritual care concerns: No Exam Narrative: APPEARANCE: Well appearing, no pain, no distress, well-nourished. HEAD: normocephalic, atraumatic. EYES: PERRLA/EOMI, conjunctivae clear. NOSE: Normal no drainage EARS:TMS clear with good light reflex. THROAT: Pharynx clear, no exudate. NECK: Supple. No adenopathy, no masses. RESPIRATORY: Airway patent, respirations nonlabored. Clear to auscultation bilaterally, no rales, rhonchi, wheezing. CARDIOVASCULAR: Regular rate and rhythm without murmurs rubs or gallops. ABDOMINAL: Soft, nontender, nondistended, normal bowel sounds MUSCULOSKELETAL: Ecchymosis and hematoma to left arm, neurovascularly intact, strong distal pulses, NEURO: Alert. SKIN: Warm, dry. Normal Color Course Vital Signs Vital signs: Vital Signs Temperature 98.5 F 07/31/23 13:00 Pulse Rate 68 07/31/23 13:00 Respiratory Rate 16 07/31/23 13:00 Blood Pressure 136/86 07/31/23 13:00 Pulse Oximetry 100 07/31/23 13:00 Oxygen Delivery Room Air 07/31/23 13:00 Temperature 98.5 F 07/31/23 13:00 Pulse Rate 66 07/31/23 16:32 Respiratory Rate 20 07/31/23 16:32 Blood Pressure 159/91 H 07/31/23 16:32 Pulse Oximetry 100 07/31/23 16:32 Oxygen Delivery Room Air 07/31/23 13:00 Medical Decision Making MDM Narrative Medical decision making narrative: 78-year-old female presents to the emergency department for evaluation of a hematoma on her left arm. Patient is afebrile with no leukocytosis and a stable hemoglobin. Patient's INR is 1.1. No acute abnormalities the patient's CMP. ultrasound was negative for DVT but does show hematoma. Patient's x-ray showed no acute fracture dislocation. Patient was provided an Rod wrap compression encouraged close follow-up with her primary care physician. Nursing staff was updated. Differential Diagnosis Differential Diagnosis: Hematoma, compartment syndrome, arm fracture, elbow fracture Vital Signs
[2023-07-31 16:03] LABS: Basophils Absolute Auto 0.1 K/mm3 (0.0-0.1); Basophils Percent Auto 0.5 % (0.2-1.2); Eosinophils Absolute Auto 0.1 K/mm3 (0-0.3); Eosinophils Percent Auto 0.8 % (0-4.4); Hematocrit 30.5 % (37.0-47.0); Hemoglobin 9.3 g/dL (12.0-15.0); Immature Granulocyte Absolute 0.05 K/mm3 (0.00-0.031); Immature Granulocyte Percent A 0.5 % (0-0.5); Lymphocytes Absolute Auto 1.11 K/mm3 (0.9-3.2); Lymphocytes Percent Auto 11.6 % (18.3-44.2); Mean Corpuscular HGB Conc 30.5 g/dl (32-36); Mean Corpuscular Hemoglobin 29.6 pg (26-34); Mean Corpuscular Volume 97.1 fl (80-100); Mean Platelet Volume 9.8 fl (7.4-10.4); Monocytes Absolute Auto 0.9 K/mm3 (0.1-0.6); Monocytes Percent Auto 9.7 % (2.6-8.5); Neutrophils Absolute Auto 7.3 K/mm3 (1.3-6.7); Neutrophils Percent Auto 76.9 % (45.5-73.1); Platelet Count Result 289 k/mm3 (150-375); Red Blood Count 3.14 M/mm3 (4.2-5.4); Red Cell Distribution Width 17.4 % (11.5-14.5); White Blood Count 9.6 K/mm3 (4.5-10.0)
[2023-07-31 16:17] LABS: Alanine Aminotransferase 39 U/L (6-35); Albumin Level 4.1 g/dL (3.5-5.1); Alkaline Phosphatase 66 U/L (38-126); Anion Gap 3 mmol/L (4-12); Aspartate Amino Transferase 35 U/L (14-36); Bilirubin,Total 0.7 mg/dL (0.2-1.3); Blood Urea Nitrogen 38 mg/dL (7-17); Calcium 9.4 mg/dL (8.4-10.2); Carbon Dioxide 29 mmol/L (22-30); Chloride 109 mmol/L (98-107); Estimated Glomerular Filt Rate 60; Glucose 110 mg/dL (65-110); Sodium 141 mmol/L (137-145)
[2023-07-31 16:22] LABS: INR 1.1; Prothrombin Time 14.3 Seconds (11.1-14.7)
[2023-07-31 16:23] LABS: Partial Thromboplastin Time 26.8 Seconds (22.3-36.8)
[2023-07-31 16:32] VITALS: BP 159/91; PULSE 66; RESP 20; O2SAT 100
--- NOTE | 2023-07-31 17:14 | PC.NURSE ---
Attempted to call report to [facility] with no answer
--- NOTE | 2023-07-31 17:30 | PC.NURSE ---
Report called to [facility] for patient transfer and disposition
== END 2023-07-31 17:42 ==
PROVIDERS: Emergency Provider Emergency Medicine
DX: S50.12XA Contusion of left forearm, initial encounter (principal); F03.90 Unspecified dementia, unspecified severity, without behavioral disturbance, psychotic disturbance, mood disturbance, and anxiety; I10 Essential (primary) hypertension; Z86.73 Personal history of transient ischemic attack (TIA), and cerebral infarction without residual deficits; R22.32 Localized swelling, mass and lump, left upper limb; W18.30XA Fall on same level, unspecified, initial encounter
CPT/HCPCS: 36415; 73070; 73090; 80053; 85025; 85610; 85730; 93971; 99284